=== PATIENT | male | born 1930 | race Caucasian/White ===

== ENCOUNTER 2017-04-22 13:27 | Inpatient (IN) | payer OTHER ==
[~2017-04-22] VITALS: Ht 177.8 cm; Wt 81.5 kg
[~2017-04-22 13:27] MED LIST: ACET500 PO; AZIT250 PO; Antivert25 MG PO; CEPH500 PO; CHOL10002 PO; CYAN100 PO; DOC250 PO; FINA5 PO; HYDACE5325 PO; HYDCHL25 PO; LEVSOD25 PO; LEVSOD50 PO; LISI20 PO; MULVITMINF PO; NAPR220 PO; NIFE30ER PO; OMEP20ER PO; OMEPRAZOLE MAGN20 MG PO; PROCODE120 PO; SIMV10 PO; SOTO80 PO; TAMS.4ER PO; TERA2 PO; WARF5 PO; [UNRECOGNIZED DRUG - REMARK] PO
[2017-04-22] MEDS ORDERED: HYDR1TAB94 PO (15:33)
[2017-04-23 05:58] LABS: BASOPHILS ABSOLUTE AUTO 0.02 K/mm3 (0.00-0.23); BASOPHILS PERCENT AUTO 0 % (0-2); EOSINOPHILS ABSOLUTE AUTO 0.01 K/mm3 (0.00-0.68); EOSINOPHILS PERCENT AUTO 0 % (0-6); Hematocrit 23.4 % (37.0-53.0); Hemoglobin 7.7 g/dL (13.5-17.5); IMMATURE GRAN ABSOLUTE AUTO 0.04 K/mm3 (0.00-0.10); IMMATURE GRAN PERCENT AUTO 1 % (0-1); LYMPHOCYTES ABSOLUTE AUTO 1.65 K/mm3 (0.84-5.20); LYMPHOCYTES PERCENT AUTO 22 % (21-46); MONOCYTES ABSOLUTE AUTO 0.66 K/mm3 (0.16-1.47); MONOCYTES PERCENT AUTO 9 % (4-13); Mean Corpuscular HGB 29.5 pg (26.0-34.0); Mean Corpuscular HGB Conc 32.9 g/dL (31.5-36.5); Mean Corpuscular Volume 90 fL (80-100); Mean Platelet Volume 10.9 fL (9.1-12.4); NEUTROPHILS ABSOLUTE AUTO 5.14 K/mm3 (1.96-9.15); NEUTROPHILS PERCENT AUTO 68 % (41-73); NRBC ABSOLUTE 0.04 K/mm3 (0.00-0.02); NRBC Auto 0.5 /100 WBC (0.0-0.2); Platelet Count 164 K/mm3 (150-400); RDW Coefficient Variation 15.4 % (11.7-14.2); RDW Standard Deviation 49.9 fL (35.1-46.3); Red Blood Cell Count 2.61 M/mm3 (4.30-5.90); White Blood Cell Count 7.52 K/mm3 (4.00-11.30)
[2017-04-23 06:19] LABS: Anion Gap 10 mmol/L (6-16); Blood Urea Nitrogen 21 mg/dL (8-24); Bun/Creatinine Ratio 31.1 (12.0-20.0); CO2, Blood 22 mmol/L (21-32); Calcium, Blood 7.5 mg/dL (8.5-10.1); Chloride, Blood 102 mmol/L (98-108); Creatinine, Blood 0.68 mg/dL (0.60-1.20); Glomerular Filtration Rate >60 (60-); Glucose, Blood 104 mg/dL (70-99); Potassium, Blood 3.7 mmol/L (3.5-5.5); Sodium, Blood 134 mmol/L (136-145)
[2017-04-23 09:45] LABS: International Normalized Ratio 2.69; Prothrombin Time Results 28.8 Sec (9.7-11.5)
[2017-04-23 21:46] LABS: Hematocrit 29.1 % (37.0-53.0); Hemoglobin 9.4 g/dL (13.5-17.5)
[2017-04-23 21:58] LABS: International Normalized Ratio 1.88; Prothrombin Time Results 19.9 Sec (9.7-11.5)
[2017-04-24 06:02] LABS: BASOPHILS ABSOLUTE AUTO 0.02 K/mm3 (0.00-0.23); BASOPHILS PERCENT AUTO 0 % (0-2); EOSINOPHILS ABSOLUTE AUTO 0.08 K/mm3 (0.00-0.68); EOSINOPHILS PERCENT AUTO 1 % (0-6); Hematocrit 28.9 % (37.0-53.0); Hematocrit 29.2 % (37.0-53.0); Hemoglobin 9.6 g/dL (13.5-17.5); Hemoglobin 9.7 g/dL (13.5-17.5); IMMATURE GRAN ABSOLUTE AUTO 0.09 K/mm3 (0.00-0.10); IMMATURE GRAN PERCENT AUTO 1 % (0-1); LYMPHOCYTES ABSOLUTE AUTO 0.85 K/mm3 (0.84-5.20); LYMPHOCYTES PERCENT AUTO 10 % (21-46); MONOCYTES ABSOLUTE AUTO 0.78 K/mm3 (0.16-1.47); MONOCYTES PERCENT AUTO 9 % (4-13); Mean Corpuscular HGB 29.6 pg (26.0-34.0); Mean Corpuscular HGB Conc 33.2 g/dL (31.5-36.5); Mean Corpuscular Volume 89 fL (80-100); NEUTROPHILS ABSOLUTE AUTO 6.81 K/mm3 (1.96-9.15); NEUTROPHILS PERCENT AUTO 79 % (41-73); NRBC ABSOLUTE 0.05 K/mm3 (0.00-0.02); NRBC Auto 0.6 /100 WBC (0.0-0.2); Platelet Count 165 K/mm3 (150-400); RDW Standard Deviation 51.4 fL (35.1-46.3); Red Blood Cell Count 3.28 M/mm3 (4.30-5.90); White Blood Cell Count 8.63 K/mm3 (4.00-11.30)
[2017-04-24 06:19] LABS: International Normalized Ratio 1.59
[2017-04-24 06:25] LABS: Prothrombin Time Results 16.8 Sec (9.7-11.5)
[2017-04-24 06:30] LABS: Anion Gap 9 mmol/L (6-16); Blood Urea Nitrogen 13 mg/dL (8-24); Bun/Creatinine Ratio 18.3 (12.0-20.0); CO2, Blood 24 mmol/L (21-32); Chloride, Blood 101 mmol/L (98-108); Creatinine, Blood 0.71 mg/dL (0.60-1.20); Glomerular Filtration Rate >60 (60-); Glucose, Blood 102 mg/dL (70-99); Potassium, Blood 3.5 mmol/L (3.5-5.5); Sodium, Blood 134 mmol/L (136-145)
[2017-04-24 13:40] LABS: Hematocrit 28.3 % (37.0-53.0); Hemoglobin 9.4 g/dL (13.5-17.5)
[2017-04-24 21:58] LABS: Hematocrit 25.9 % (37.0-53.0); Hemoglobin 8.7 g/dL (13.5-17.5)
[2017-04-25 08:21] LABS: Hematocrit 30.6 % (37.0-53.0); Hemoglobin 9.7 g/dL (13.5-17.5)
== END 2017-04-25 12:25 | disposition home or self-care (01) | DRG 392 ==
LOC: ER 13:27 → MEDS 13:28
PROVIDERS: Family Medicine; Internal Medicine Gastroenterology
PROC: 0DJ08ZZ Inspection of Upper Intestinal Tract, Via Natural or Artificial Opening Endoscopic (ICD-10-PCS; principal; 2017-04-23 12:00)
DX: K21.0 Gastro-esophageal reflux disease with esophagitis (principal); D62 Acute posthemorrhagic anemia; D68.4 Acquired coagulation factor deficiency; I48.2 Chronic atrial fibrillation; K31.7 Polyp of stomach and duodenum; I10 Essential (primary) hypertension; E03.9 Hypothyroidism, unspecified; F43.10 Post-traumatic stress disorder, unspecified; F51.04 Psychophysiologic insomnia; N40.1 Benign prostatic hyperplasia with lower urinary tract symptoms; R33.8 Other retention of urine; K57.30 Diverticulosis of large intestine without perforation or abscess without bleeding; K22.8 Other specified diseases of esophagus; K29.00 Acute gastritis without bleeding; G89.29 Other chronic pain; Z87.891 Personal history of nicotine dependence; Z79.899 Other long term (current) drug therapy; Z79.01 Long term (current) use of anticoagulants; Z88.2 Allergy status to sulfonamides
CPT/HCPCS: 36415; 36430; 80048; 85014; 85018; 85025; 85610; 86850; 86900; 86901; 86920; 86927; 96374; 99285; C9113; J1170; J7030; J7042; J7120; P9016; P9059

== ENCOUNTER 2018-06-09 07:39 | Inpatient (IN) | payer OTHER ==
[~2018-06-09] VITALS: Ht 172.7 cm; Wt 78.9 kg
[~2018-06-09 07:39] MED LIST changes: +HYDR1TAB94 PO; +LEVSOD75 PO
[2018-06-09 08:13] LABS: BASOPHILS ABSOLUTE AUTO 0.03 K/mm3 (0.00-0.23); BASOPHILS PERCENT AUTO 0 % (0-2); EOSINOPHILS ABSOLUTE AUTO 0.06 K/mm3 (0.00-0.68); EOSINOPHILS PERCENT AUTO 1 % (0-6); Hemoglobin 9.3 g/dL (13.5-17.5); IMMATURE GRAN ABSOLUTE AUTO 0.05 K/mm3 (0.00-0.10); IMMATURE GRAN PERCENT AUTO 1 % (0-1); LYMPHOCYTES ABSOLUTE AUTO 0.83 K/mm3 (0.84-5.20); LYMPHOCYTES PERCENT AUTO 12 % (21-46); MONOCYTES ABSOLUTE AUTO 0.36 K/mm3 (0.16-1.47); MONOCYTES PERCENT AUTO 5 % (4-13); Mean Corpuscular HGB 29.2 pg (26.0-34.0); Mean Corpuscular HGB Conc 32.1 g/dL (31.5-36.5); Mean Corpuscular Volume 91 fL (80-100); Mean Platelet Volume 11.1 fL (9.1-12.4); NEUTROPHILS ABSOLUTE AUTO 5.53 K/mm3 (1.96-9.15); NEUTROPHILS PERCENT AUTO 81 % (41-73); Platelet Count 155 K/mm3 (150-400); RDW Coefficient Variation 16.9 % (11.7-14.2); RDW Standard Deviation 56.7 fL (35.1-46.3); Red Blood Cell Count 3.19 M/mm3 (4.30-5.90); White Blood Cell Count 6.86 K/mm3 (4.00-11.30)
[2018-06-09 08:32] LABS: International Normalized Ratio 3.06; Prothrombin Time Results 29.3 Sec (9.7-11.5)
[2018-06-09 08:34] LABS: Alanine Aminotransfer (ALT/SGP 21 U/L (12-78); Albumin, Blood 3.1 g/dL (3.4-5.0); Albumin/Globulin Ratio 0.8 (0.8-1.8); Alk Phos 63 U/L (50-136); Anion Gap 9 mmol/L (6-16); Aspartate Aminotrans (AST/SGOT 15 U/L (12-37); Bilirubin, Total 0.3 mg/dL (0.1-1.0); Blood Urea Nitrogen 45 mg/dL (8-24); Bun/Creatinine Ratio 40.2 (12.0-20.0); CO2, Blood 24 mmol/L (21-32); Calcium, Blood 8.7 mg/dL (8.5-10.1); Chloride, Blood 105 mmol/L (98-108); Creatinine, Blood 1.12 mg/dL (0.60-1.20); Globulin, Blood 3.8 g/dL (2.2-4.0); Glomerular Filtration Rate >60 (60-); Glucose, Blood 92 mg/dL (70-99); Potassium, Blood 4.1 mmol/L (3.5-5.5); Sodium, Blood 138 mmol/L (136-145); Total Protein, Blood 6.9 g/dL (6.4-8.2)
[2018-06-09] MEDS ORDERED: SKIN TREATMENT225 GM (09:29)
[2018-06-09] MEDS ORDERED: DOXA2 PO (09:30)
[2018-06-09] MEDS ORDERED: DOCU100 PO (09:30)
[2018-06-09] MEDS ORDERED: FURO20 PO (09:31)
[2018-06-09] MEDS ORDERED: Loratadine10 MG PO (09:31)
[2018-06-09] MEDS ORDERED: HYDR1TAB94 (09:31)
[2018-06-09] MEDS ORDERED: Multivitamins1 EACH PO (09:32)
--- NOTE | 2018-06-09 14:05 | NUR ---
REPORT FROM BELINDA TREVINO. REPORT GIVEN TO BELINDA OCONNOR ASSUMING CARE.
--- NOTE | 2018-06-09 18:33 | NUR ---
PT TRANSFERED TO [facility]- CALLED REPORT TO NIKKO AT [facility]. NO FURTHER QUESTIONS WHEN REPORT WAS COMPLETE. CONTACT INFO PROVIDED. PT TAKEN BY [facility] TRANSPORT. VITALS TAKEN AT THE TIME OF TRANSFER.
== END 2018-06-09 18:15 | disposition short-term general hospital (02) | DRG 378 ==
LOC: ER 07:39 → MEDS 13:06
PROVIDERS: Emergency Medicine; ADMIT Hospitalist
PROC: 30233M1 Transfusion of Nonautologous Plasma Cryoprecipitate into Peripheral Vein, Percutaneous Approach (ICD-10-PCS; principal; 2018-06-09)
DX: K92.1 Melena (principal); D68.32 Hemorrhagic disorder due to extrinsic circulating anticoagulants; T45.515A Adverse effect of anticoagulants, initial encounter; I10 Essential (primary) hypertension; E03.9 Hypothyroidism, unspecified; I48.91 Unspecified atrial fibrillation; Z87.891 Personal history of nicotine dependence; Z95.2 Presence of prosthetic heart valve; N31.9 Neuromuscular dysfunction of bladder, unspecified
CPT/HCPCS: 71045; 80053; 85025; 85610; 86850; 86900; 86901; 93005; 93010; C9113; J3430; P9059

== ENCOUNTER 2018-06-14 05:10 | Observation (INO) | payer OTHER ==
[~2018-06-14] VITALS: Ht 177.8 cm; Wt 84.1 kg
[~2018-06-14 05:10] MED LIST changes: +DOCU100 PO; +DOXA2 PO; +FURO20 PO; +HYDR1TAB94; +Multivitamins1 EACH PO; -NIFE30ER PO; +NIFE60ER PO; +SKIN TREATMENT225 GM TOP
[2018-06-14 06:04] LABS: BASOPHILS ABSOLUTE AUTO 0.01 K/mm3 (0.00-0.23); BASOPHILS PERCENT AUTO 0 % (0-2); EOSINOPHILS ABSOLUTE AUTO 0.22 K/mm3 (0.00-0.68); EOSINOPHILS PERCENT AUTO 4 % (0-6); Hematocrit 25.6 % (37.0-53.0); Hemoglobin 8.3 g/dL (13.5-17.5); IMMATURE GRAN ABSOLUTE AUTO 0.02 K/mm3 (0.00-0.10); IMMATURE GRAN PERCENT AUTO 0 % (0-1); LYMPHOCYTES ABSOLUTE AUTO 1.07 K/mm3 (0.84-5.20); LYMPHOCYTES PERCENT AUTO 18 % (21-46); MONOCYTES ABSOLUTE AUTO 0.48 K/mm3 (0.16-1.47); MONOCYTES PERCENT AUTO 8 % (4-13); Mean Corpuscular HGB 30.5 pg (26.0-34.0); Mean Corpuscular HGB Conc 32.4 g/dL (31.5-36.5); NEUTROPHILS ABSOLUTE AUTO 4.05 K/mm3 (1.96-9.15); NEUTROPHILS PERCENT AUTO 69 % (41-73); RDW Standard Deviation 59.6 fL (35.1-46.3); Red Blood Cell Count 2.72 M/mm3 (4.30-5.90); White Blood Cell Count 5.85 K/mm3 (4.00-11.30)
[2018-06-14 06:06] LABS: Mean Corpuscular Volume 94 fL (80-100); Mean Platelet Volume 12.7 fL (9.1-12.4); Platelet Count 107 K/mm3 (150-400)
[2018-06-14 06:14] LABS: Albumin, Blood 2.9 g/dL (3.4-5.0); Albumin/Globulin Ratio 0.8 (0.8-1.8); Bilirubin, Total 0.5 mg/dL (0.1-1.0); Bun/Creatinine Ratio 13.1 (12.0-20.0); Creatinine, Blood 1.3 mg/dL (0.60-1.20); Globulin, Blood 3.6 g/dL (2.2-4.0); Potassium, Blood 3.8 mmol/L (3.5-5.5); Total Protein, Blood 6.5 g/dL (6.4-8.2)
[2018-06-14] MEDS ORDERED: TAMS.4ER PO (06:58)
[2018-06-14 06:59] LABS: Source, Urine Catheter
[2018-06-14 07:07] LABS: Bilirubin, Urine Neg (Neg); Blood, Urine Neg (Neg); Glucose Qualitative, Urine Neg (Neg); Ketones, Urine Neg (Neg); Leukocyte Esterase, Urine Neg (Neg); Nitrite, Urine Neg (Neg); Protein, Urine 1+ (Neg); Urobilinogen, Urine NORM (Normal)
[2018-06-14 07:13] LABS: Appearance, Urine Clear (Clear); Color, Urine Yellow (P-Yellow)
[2018-06-14 07:48] LABS: International Normalized Ratio 1.22; Prothrombin Time Results 12.7 Sec (9.7-11.5)
[2018-06-14] MEDS ORDERED: Loratadine10 MG PO (13:32)
[2018-06-14] MEDS ORDERED: ASCO500 PO (13:37)
[2018-06-14] MEDS ORDERED: AZO CRANBERRY250 MG PO (13:38)
[2018-06-14] MEDS ORDERED: Super B-50 Com1 EACH PO (13:39)
[2018-06-14] MEDS ORDERED: MAGNESIUM250 MG PO (13:39)
[2018-06-14] MEDS ORDERED: Cardura2 MG PO (13:49)
[2018-06-14] MEDS ORDERED: [UNRECOGNIZED DRUG - OTHER] BOTHEYES (13:51)
--- NOTE | 2018-06-14 16:46 | NUR ---
SHIFT SUMMARY RECEIVED HANDOFF REPORT FROM ED NURSE NEHEMIAS. 88 YR OLD MALE DIAGNOSED WITH BLOOD LOSS ANEMIA. HE STATES HE HAS ABD PAIN, CONSTIPATION, AND URINARY RETENTION. HE WAS FOUND TO BE HYPOXIC IN ER. HE IS ON 2 LPM VIA NC. PT HAD A COLONOSCOPY AND EGD AT [place] 3 DAYS PREVIOUS AND HAS HAD NO BM SINCE. HE IS A&O X4. HE HAS A HX OF SELF-CATHETERIZING DUE TO NEUROGENIC BLADDER. ED PUT IN A GONZALEZ AND 200 ML OF URINE WAS REMOVED. PT CAME TO THE FLOOR WITH THE 2ND OF TWO ORDERED UNITS OF BLOOD INFUSING. PT RESIDES AT [facility]. HX: HTN, A-FIB, HYPOTHYROID.
[2018-06-15 05:16] LABS: BASOPHILS ABSOLUTE AUTO 0.04 K/mm3 (0.00-0.23); BASOPHILS PERCENT AUTO 1 % (0-2); EOSINOPHILS ABSOLUTE AUTO 0.11 K/mm3 (0.00-0.68); EOSINOPHILS PERCENT AUTO 2 % (0-6); Hematocrit 32.7 % (37.0-53.0); Hemoglobin 10.4 g/dL (13.5-17.5); IMMATURE GRAN ABSOLUTE AUTO 0.03 K/mm3 (0.00-0.10); IMMATURE GRAN PERCENT AUTO 1 % (0-1); LYMPHOCYTES ABSOLUTE AUTO 0.91 K/mm3 (0.84-5.20); LYMPHOCYTES PERCENT AUTO 16 % (21-46); MONOCYTES ABSOLUTE AUTO 0.48 K/mm3 (0.16-1.47); MONOCYTES PERCENT AUTO 8 % (4-13); Mean Corpuscular HGB 29.6 pg (26.0-34.0); Mean Corpuscular HGB Conc 31.8 g/dL (31.5-36.5); Mean Corpuscular Volume 93 fL (80-100); Mean Platelet Volume 11.7 fL (9.1-12.4); NEUTROPHILS ABSOLUTE AUTO 4.26 K/mm3 (1.96-9.15); NEUTROPHILS PERCENT AUTO 73 % (41-73); Platelet Count 151 K/mm3 (150-400); RDW Coefficient Variation 17.2 % (11.7-14.2); RDW Standard Deviation 56.6 fL (35.1-46.3); Red Blood Cell Count 3.51 M/mm3 (4.30-5.90); White Blood Cell Count 5.83 K/mm3 (4.00-11.30)
[2018-06-15] MEDS ORDERED: CIPR500 PO (06:15)
--- NOTE | 2018-06-15 06:18 | NUR ---
alert and oriented and had been admitted at [facility] in [place] and with diverticulitis and has needed 3 units of packed red blood cells. He had gen weakness and poor appetite and symptomatic anemia. he is [employer] and served 22 years. He recives services from [facility]. He recieved 2 units of PRBC transfusion here and H & H improved. PT has neurogenic bladder and he self caths average of 6 times in 24 hours. A remy was placed in ER yesterday and DR Azael bailon order to keep remy due to his ongoing condition. Discussed PT was DC home on Cipro 500 mg po BID x 4 days and He took 2 doses Monday but none since. RX not ordered but entered into med rec. PT had relief of constipation has evening at shift change with exlarge formed . Remy cath drained 975 clear urine and PT expressed good relief of urinary retention. Spirits good has PT eval order. took joselyn pudding and ensure with set up.
[2018-06-15 11:03] LABS: Hematocrit 33.9 % (37.0-53.0); Hemoglobin 10.8 g/dL (13.5-17.5)
--- NOTE | 2018-06-15 16:09 | NUR ---
CALLED DR CASANOVA- *LATE ENTRY* PT HGB REMAINING STABLE. PT UP WALKING IN THE ROOM, HOME O2 EVAL COMPLETED AND ASSESSMENT BY PHYSICAL THERAPY COMPLETED, RECOMEND HOME HEALTH FOLLOW-UP. DR MAO OK TO SEND PT HOME AT THIS TIME. SPOKE TO [place] 9 POLICE OFFICER WHO ARRANGED TRANSPORT HOME FOR THE PT, AT HIS REQUEST. PT IS AWARE OF THE COST OF THE TRANSPORT.
--- NOTE | 2018-06-15 17:40 | NUR ---
DISCHARGE NOTE- PT WAS GIVEN VERBAL AND WRITTEN DISCHARGE INSTRUCTIONS AND ACKNOWLEDGED UNDERSTANDING OF THEM. IV DC'D PRIOR TO DISCHARGE. PT WAS TAKEN BY W/C TRANSPORT BACK TO HIS ASSISTED LIVING HOME. DAUGHTER PRESENT AT THE TIME PT LEFT.
== END 2018-06-15 17:20 | disposition home or self-care (01) ==
LOC: ER 05:10 → MEDS 05:11
PROVIDERS: Emergency Medicine; ADMIT Hospitalist
DX: D50.0 Iron deficiency anemia secondary to blood loss (chronic) (principal); K59.00 Constipation, unspecified; I10 Essential (primary) hypertension; N31.9 Neuromuscular dysfunction of bladder, unspecified; E03.9 Hypothyroidism, unspecified; I48.91 Unspecified atrial fibrillation; Z87.891 Personal history of nicotine dependence; Z91.048 Other nonmedicinal substance allergy status; Z88.2 Allergy status to sulfonamides; Z79.899 Other long term (current) drug therapy
CPT/HCPCS: 36415; 36430; 51702; 74022; 80053; 82272; 83690; 83880; 85014; 85018; 85025; 85610; 86850; 86900; 86901; 86923; 93005; 93010; 94761; 96374; 97116; 97161; 99285-25; G0378; J1940; J7030; P9016

== ENCOUNTER 2018-10-18 01:06 | Emergency (ER) | payer OTHER ==
[~2018-10-18] VITALS: Ht 177.8 cm; Wt 80.3 kg
[~2018-10-18 01:06] MED LIST changes: +ASCO500 PO; +AZO CRANBERRY250 MG PO; +CIPR500 PO; +Cardura2 MG PO; +Loratadine10 MG PO; +MAGNESIUM250 MG PO; +Super B-50 Com1 EACH PO; +[UNRECOGNIZED DRUG - OTHER] BOTHEYES
[2018-10-18 01:38] LABS: Source, Urine Catheter
[2018-10-18 01:42] LABS: Appearance, Urine Clear (Clear); Bilirubin, Urine Neg (Neg); Blood, Urine Neg (Neg); Color, Urine Yellow (P-Yellow); Glucose Qualitative, Urine Neg (Neg); Ketones, Urine Neg (Neg); Leukocyte Esterase, Urine 2+ (Neg); Nitrite, Urine Neg (Neg); Protein, Urine Neg (Neg); Specific Gravity, Urine 1.005 (1.003-1.022); Urobilinogen, Urine NORM (Normal)
[2018-10-18 01:50] LABS: Bacteria Mod /hpf; Red Blood Cells, Urine 0-2 /hpf (0-2); Squamous Epithelial Cells Not Seen /hpf (Few)
[2018-10-18] MEDS ORDERED: CEFP200 PO (02:07)
== END 2018-10-18 02:50 | disposition home or self-care (01) ==
LOC: ER 01:06
PROVIDERS: Emergency Medicine
DX: N39.0 Urinary tract infection, site not specified (principal); I10 Essential (primary) hypertension; I48.91 Unspecified atrial fibrillation; E03.9 Hypothyroidism, unspecified; Z79.899 Other long term (current) drug therapy; Z88.2 Allergy status to sulfonamides; Z87.891 Personal history of nicotine dependence
CPT/HCPCS: 51701; 81001; 87077; 87086; 87186; 99284; A9270-GY

== ENCOUNTER 2018-12-04 17:16 | Emergency (ER) | payer OTHER ==
[~2018-12-04] VITALS: Ht 172.7 cm; Wt 79.4 kg
[~2018-12-04 17:16] MED LIST changes: +CEFP200 PO
[2018-12-04 18:48] LABS: BASOPHILS ABSOLUTE AUTO 0.02 K/mm3 (0.00-0.23); BASOPHILS PERCENT AUTO 0 % (0-2); EOSINOPHILS ABSOLUTE AUTO 0.05 K/mm3 (0.00-0.68); EOSINOPHILS PERCENT AUTO 1 % (0-6); Hemoglobin 10.7 g/dL (13.5-17.5); IMMATURE GRAN ABSOLUTE AUTO 0.05 K/mm3 (0.00-0.10); IMMATURE GRAN PERCENT AUTO 1 % (0-1); LYMPHOCYTES ABSOLUTE AUTO 0.61 K/mm3 (0.84-5.20); LYMPHOCYTES PERCENT AUTO 10 % (21-46); MONOCYTES ABSOLUTE AUTO 0.37 K/mm3 (0.16-1.47); MONOCYTES PERCENT AUTO 6 % (4-13); Mean Corpuscular HGB 31.8 pg (26.0-34.0); Mean Corpuscular HGB Conc 33.4 g/dL (31.5-36.5); Mean Corpuscular Volume 95 fL (80-100); NEUTROPHILS ABSOLUTE AUTO 4.88 K/mm3 (1.96-9.15); NEUTROPHILS PERCENT AUTO 82 % (41-73); RDW Coefficient Variation 15.1 % (11.7-14.2); RDW Standard Deviation 52.7 fL (35.1-46.3); Red Blood Cell Count 3.36 M/mm3 (4.30-5.90); White Blood Cell Count 5.98 K/mm3 (4.00-11.30)
[2018-12-04 19:09] LABS: Albumin, Blood 3.3 g/dL (3.4-5.0); Albumin/Globulin Ratio 0.8 (0.8-1.8); Bilirubin, Total 0.7 mg/dL (0.1-1.0); Calcium, Blood 8.5 mg/dL (8.5-10.1); Creatinine, Blood 1.73 mg/dL (0.60-1.20); Globulin, Blood 4.1 g/dL (2.2-4.0); Total Protein, Blood 7.4 g/dL (6.4-8.2)
[2018-12-04 20:06] LABS: Mean Platelet Volume 11.9 fL (9.1-12.4); Platelet Count 98 K/mm3 (150-400)
[2018-12-04 20:21] LABS: Source, Urine Catheter
[2018-12-04 20:29] LABS: Bilirubin, Urine Neg (Neg); Blood, Urine 2+ (Neg); Glucose Qualitative, Urine Neg (Neg); Ketones, Urine Neg (Neg); Leukocyte Esterase, Urine 3+ (Neg); Nitrite, Urine Neg (Neg); Protein, Urine 1+ (Neg); Specific Gravity, Urine 1.005 (1.003-1.022); Urobilinogen, Urine NORM (Normal)
[2018-12-04 20:41] LABS: Appearance, Urine Hazy (Clear); Bacteria Many /hpf; Color, Urine Yellow (P-Yellow); Red Blood Cells, Urine Not Seen /hpf (0-2); Squamous Epithelial Cells Not Seen /hpf (Few); White Blood Cells, Urine 50-100 /hpf (0-5)
[2018-12-04] MEDS ORDERED: Levaquin750 MG PO (22:43)
[2018-12-04] MEDS ORDERED: CEPH500 PO (22:43)
== END 2018-12-05 00:05 | disposition home or self-care (01) ==
LOC: ER 17:16
PROVIDERS: Physician Assistant
DX: N39.0 Urinary tract infection, site not specified (principal); I10 Essential (primary) hypertension; I48.91 Unspecified atrial fibrillation; E03.9 Hypothyroidism, unspecified; Z87.891 Personal history of nicotine dependence; Z88.2 Allergy status to sulfonamides; Z91.048 Other nonmedicinal substance allergy status; Z79.899 Other long term (current) drug therapy
CPT/HCPCS: 80053; 81001; 83690; 85025; 87077; 87086; 87186; 96365; 99283-25; J0696; J7030

== ENCOUNTER 2019-08-23 06:58 | Observation (INO) | payer OTHER ==
[~2019-08-23] VITALS: Ht 172.7 cm; Wt 82.4 kg
[~2019-08-23 06:58] MED LIST changes: +Levaquin750 MG PO; +Macrobid 100 M100 MG PO
[2019-08-23] MEDS ORDERED: LISI20 PO (07:38)
[2019-08-23] MEDS ORDERED: FURO20 PO (07:39)
[2019-08-23] MEDS ORDERED: EUTHYROX50 MCG PO (07:39)
[2019-08-23] MEDS ORDERED: Afeditab Cr30 MG PO (07:39)
[2019-08-23] MEDS ORDERED: OMEP20ER PO (07:40)
[2019-08-23] MEDS ORDERED: CENTRUM SILVER1 EAC2 PO (07:40)
[2019-08-23] MEDS ORDERED: AZO BLADDER CO300 MG PO (07:40)
[2019-08-23] MEDS ORDERED: DOXA2 PO (07:41)
[2019-08-23] MEDS ORDERED: FINA5 PO (07:41)
[2019-08-23 08:06] LABS: Source, Urine Catheter
[2019-08-23 08:08] LABS: BASOPHILS ABSOLUTE AUTO 0.01 K/mm3 (0.00-0.23); BASOPHILS PERCENT AUTO 0 % (0-2); EOSINOPHILS ABSOLUTE AUTO 0.08 K/mm3 (0.00-0.68); EOSINOPHILS PERCENT AUTO 3 % (0-6); Hemoglobin 10.3 g/dL (13.5-17.5); IMMATURE GRAN ABSOLUTE AUTO 0.02 K/mm3 (0.00-0.10); IMMATURE GRAN PERCENT AUTO 1 % (0-1); LYMPHOCYTES ABSOLUTE AUTO 0.52 K/mm3 (0.84-5.20); LYMPHOCYTES PERCENT AUTO 22 % (21-46); MONOCYTES ABSOLUTE AUTO 0.07 K/mm3 (0.16-1.47); MONOCYTES PERCENT AUTO 3 % (4-13); Mean Corpuscular HGB Conc 33.2 g/dL (31.5-36.5); Mean Corpuscular Volume 99 fL (80-100); Mean Platelet Volume 12.6 fL (9.1-12.4); NEUTROPHILS ABSOLUTE AUTO 1.64 K/mm3 (1.96-9.15); NEUTROPHILS PERCENT AUTO 70 % (41-73); Platelet Count 102 K/mm3 (150-400); RDW Coefficient Variation 16.6 % (11.7-14.2); RDW Standard Deviation 60.3 fL (35.1-46.3); Red Blood Cell Count 3.12 M/mm3 (4.30-5.90); White Blood Cell Count 2.34 K/mm3 (4.00-11.30)
[2019-08-23 08:12] LABS: Bilirubin, Urine Neg (Neg); Blood, Urine 1+ (Neg); Glucose Qualitative, Urine Neg (Neg); Ketones, Urine Neg (Neg); Leukocyte Esterase, Urine 3+ (Neg); Nitrite, Urine Neg (Neg); Protein, Urine Neg (Neg); Specific Gravity, Urine 1.015 (1.003-1.022); Urobilinogen, Urine NORM (Normal)
[2019-08-23 08:39] LABS: Color, Urine Yellow (P-Yellow)
[2019-08-23 08:40] LABS: Appearance, Urine Hazy (Clear); Bacteria Many /hpf; Red Blood Cells, Urine 0-2 /hpf (0-2); Squamous Epithelial Cells Rare /hpf (Few)
[2019-08-23 08:40] LABS: Albumin, Blood 3.5 g/dL (3.4-5.0); Albumin/Globulin Ratio 0.9 (0.8-1.8); Bilirubin, Total 0.6 mg/dL (0.1-1.0); Calcium, Blood 8.7 mg/dL (8.5-10.1); Creatinine, Blood 1.75 mg/dL (0.60-1.20); Potassium, Blood 4.3 mmol/L (3.5-5.5); Total Protein, Blood 7.5 g/dL (6.4-8.2)
--- NOTE | 2019-08-23 18:06 | NUR ---
PT IS AOX4 AND COOPERATIVE OF CARE. PT HAS BEEN SETTLED INTO HIS ROOM AND ORIENTED TO CALL LIGHT. PT DID REPORT MUSCLE CRAMPS UNDER HIS RIB CAGE AND IN HIS HAS TO THE POINT HE HAD TO STAND AND COULD NOT TOLERATE LAYING IN BED. ONCE PT WAS UP IN CHAIR CRAMPING RESOLVED. NOTIFIED DR HERNANDSE OF PROBLEM AND MEDICATION WAS ADDED TO EMAR. CAN ABULATE WITH MINIMAL ASSISTANCE, IS JUST A BIT UNSTABLE WHEN STANDING. PT UP IN CHAIR EATING WILL CONTINUE TO MONITOR.
--- NOTE | 2019-08-24 03:23 | NUR ---
SHIFT SUMMARY PT HAS BEEN RESTING QUIETLY WITH FEW INTERRUPTIONS SINCE HS. GONZALEZ DRAINING. O2 PER NC AT 2L/MIN. NO NOTED DYSPNEIC EPISODES OF THIS WRITING. AGREED TO USE CALL LIGHT IF NEEDING TO GET OUT OF BED, CALL LIGHT IN REACH. MED TELE CONTINUES - A FIB AT 53. WILL CONTINUE TO MONITOR
[2019-08-24 05:05] LABS: BASOPHILS ABSOLUTE AUTO 0.02 K/mm3 (0.00-0.23); BASOPHILS PERCENT AUTO 1 % (0-2); EOSINOPHILS ABSOLUTE AUTO 0.12 K/mm3 (0.00-0.68); EOSINOPHILS PERCENT AUTO 5 % (0-6); Hematocrit 28.4 % (37.0-53.0); Hemoglobin 9.4 g/dL (13.5-17.5); Mean Corpuscular HGB 33.1 pg (26.0-34.0); Mean Corpuscular HGB Conc 33.1 g/dL (31.5-36.5); Mean Corpuscular Volume 100 fL (80-100); Mean Platelet Volume 12.2 fL (9.1-12.4); Platelet Count 82 K/mm3 (150-400); RDW Coefficient Variation 16.7 % (11.7-14.2); RDW Standard Deviation 61.1 fL (35.1-46.3); Red Blood Cell Count 2.84 M/mm3 (4.30-5.90); White Blood Cell Count 2.28 K/mm3 (4.00-11.30)
[2019-08-24 05:19] LABS: IMMATURE GRAN ABSOLUTE AUTO 0.01 K/mm3 (0.00-0.10); IMMATURE GRAN PERCENT AUTO 0 % (0-1); LYMPHOCYTES ABSOLUTE AUTO 0.75 K/mm3 (0.84-5.20); LYMPHOCYTES PERCENT AUTO 33 % (21-46); MONOCYTES ABSOLUTE AUTO 0.09 K/mm3 (0.16-1.47); MONOCYTES PERCENT AUTO 4 % (4-13); NEUTROPHILS ABSOLUTE AUTO 1.29 K/mm3 (1.96-9.15); NEUTROPHILS PERCENT AUTO 57 % (41-73)
[2019-08-24 05:21] LABS: Calcium, Blood 8.3 mg/dL (8.5-10.1); Creatinine, Blood 1.62 mg/dL (0.60-1.20); Potassium, Blood 3.9 mmol/L (3.5-5.5)
[2019-08-24] MEDS ORDERED: LACT PO (11:25)
[2019-08-24] MEDS ORDERED: CEPH500 PO (11:25)
[2019-08-24] MEDS ORDERED: FURO40 PO (11:26)
[2019-08-24] MEDS ORDERED: ACET325 PO (11:33)
--- NOTE | 2019-08-24 12:52 | NUR ---
DISCHARGE PT STATE FEELING IMPROVED THIS AM, NO SOB OR BREATHING ISSUES @ THIS TIME, VSS, BIOX 94% RA. DR HERNANDES IN TO SEE HIM, STATE HE MAY GO HOME TODAY. NOTIFIED PT'S DAUGHTER. CLOUD INFRASTRUCTURE ARCHITECT NOTIFY [facility] THAT PT WILL RETURN HOME TODAY. SCRIPTS FAXED TO [facility]. GRADUATING MACHINE OPERATOR ARRANGE HOME HEALTH & F/U [facility]PT w [facility], GONZALEZ CATH D/C'D, PT WILL CONTINUE SELF CATHS @ HOME. IV D/C INTACT. D/C INSTRUCT REVIEWED w PT, EMPHASIS ON DIET, WEIGHT MONITORING & MEDICATIONS. PT ASSISTED TO DRESS/GATHER BELONGINGS. W/C ESCRT FROM HOSP PROVIDED, DONNA W/C VALORIE. HE IS PLEASANT/APPRECIATIVE.
== END 2019-08-24 12:40 | disposition home health service (06) ==
LOC: ER 06:58 → MEDS 06:59 → ER 10:33 → MEDS 10:33
PROVIDERS: Emergency Medicine; ADMIT Internal Medicine
DX: J96.01 Acute respiratory failure with hypoxia (principal); I13.0 Hypertensive heart and chronic kidney disease with heart failure and stage 1 through stage 4 chronic kidney disease, or unspecified chronic kidney disease; I50.30 Unspecified diastolic (congestive) heart failure; N18.3 Chronic kidney disease, stage 3 (moderate); I48.91 Unspecified atrial fibrillation; N31.9 Neuromuscular dysfunction of bladder, unspecified; N39.0 Urinary tract infection, site not specified; R53.1 Weakness; Z79.899 Other long term (current) drug therapy; Z88.8 Allergy status to other drugs, medicaments and biological substances; Z88.2 Allergy status to sulfonamides; J90 Pleural effusion, not elsewhere classified; Z66 Do not resuscitate; Z87.891 Personal history of nicotine dependence
CPT/HCPCS: 36415; 71045; 80048; 80053; 81001; 83880; 85025; 87077; 87086; 87186; 93005; 93010; 93306; 96372; 96374; 96375; 96376; 97112; 97161; 97166; 97530; 99285-25; A9270-GY; G0378; J0696; J1650; J1940; U0002

== ENCOUNTER 2019-11-08 12:02 | Observation (INO) | payer OTHER ==
[~2019-11-08] VITALS: Ht 177.8 cm; Wt 87.5 kg
[~2019-11-08 12:02] MED LIST changes: +AZO BLADDER CO300 MG PO; +Afeditab Cr30 MG PO; +DOXA4 PO; +FURO40 PO; +LACT PO; +LEVSOD100 PO; +MULTI-VITAMIN1 EAC2 PO
[2019-11-08 13:18] LABS: BASOPHILS ABSOLUTE AUTO 0.01 K/mm3 (0.00-0.23); BASOPHILS PERCENT AUTO 0 % (0-2); EOSINOPHILS ABSOLUTE AUTO 0.11 K/mm3 (0.00-0.68); EOSINOPHILS PERCENT AUTO 5 % (0-6); Hematocrit 26.2 % (37.0-53.0); Hemoglobin 8.7 g/dL (13.5-17.5); IMMATURE GRAN ABSOLUTE AUTO 0.04 K/mm3 (0.00-0.10); IMMATURE GRAN PERCENT AUTO 2 % (0-1); LYMPHOCYTES ABSOLUTE AUTO 0.58 K/mm3 (0.84-5.20); LYMPHOCYTES PERCENT AUTO 25 % (21-46); MONOCYTES ABSOLUTE AUTO 0.06 K/mm3 (0.16-1.47); MONOCYTES PERCENT AUTO 3 % (4-13); Mean Corpuscular HGB 33.5 pg (26.0-34.0); Mean Corpuscular HGB Conc 33.2 g/dL (31.5-36.5); Mean Corpuscular Volume 101 fL (80-100); Mean Platelet Volume 12.5 fL (9.1-12.4); NEUTROPHILS ABSOLUTE AUTO 1.49 K/mm3 (1.96-9.15); NEUTROPHILS PERCENT AUTO 65 % (41-73); Platelet Count 95 K/mm3 (150-400); RDW Coefficient Variation 18.1 % (11.7-14.2); RDW Standard Deviation 67.5 fL (35.1-46.3); White Blood Cell Count 2.29 K/mm3 (4.00-11.30)
[2019-11-08 13:26] LABS: Alanine Aminotransfer (ALT/SGP 20 U/L (12-78); Albumin, Blood 3.1 g/dL (3.4-5.0); Albumin/Globulin Ratio 0.7 (0.8-1.8); Alk Phos 99 U/L (50-136); Anion Gap 6 mmol/L (6-16); Aspartate Aminotrans (AST/SGOT 14 U/L (12-37); Bilirubin, Total 0.7 mg/dL (0.1-1.0); Blood Urea Nitrogen 31 mg/dL (8-24); Bun/Creatinine Ratio 16.9 (12.0-20.0); CO2, Blood 26 mmol/L (21-32); Calcium, Blood 8.6 mg/dL (8.5-10.1); Chloride, Blood 102 mmol/L (98-108); Creatinine, Blood 1.83 mg/dL (0.60-1.20); Globulin, Blood 4.2 g/dL (2.2-4.0); Glomerular Filtration Rate 37 (60-); Glucose, Blood 109 mg/dL (70-99); Potassium, Blood 4.3 mmol/L (3.5-5.5); Sodium, Blood 134 mmol/L (136-145); Total Protein, Blood 7.3 g/dL (6.4-8.2); Troponin I <0.015 ng/mL (0.000-0.040)
[2019-11-08 13:40] LABS: Source, Urine Clean Catch
[2019-11-08 13:43] LABS: Appearance, Urine Clear (Clear); Bilirubin, Urine Neg (Neg); Blood, Urine 1+ (Neg); Color, Urine Yellow (P-Yellow); Glucose Qualitative, Urine Neg (Neg); Ketones, Urine Neg (Neg); Leukocyte Esterase, Urine 1+ (Neg); Nitrite, Urine Neg (Neg); Protein, Urine Neg (Neg); Urobilinogen, Urine NORM (Normal)
[2019-11-08 13:56] LABS: Bacteria Few /hpf; Squamous Epithelial Cells Rare /hpf (Few); White Blood Cells, Urine 0-2 /hpf (0-5)
[2019-11-08] MEDS ORDERED: MIRALAX17 GM PO (16:19)
[2019-11-08] MEDS ORDERED: NARCAN4 M1 (16:20)
[2019-11-08] MEDS ORDERED: VITAMIN D31000 UNI1 PO (16:21)
[2019-11-08] MEDS ORDERED: DICLOFENAC SOD100 G1 TOP (16:21)
[2019-11-08] MEDS ORDERED: DOCU100 PO (16:22)
[2019-11-08] MEDS ORDERED: Loratadine10 MG PO (16:23)
[2019-11-08] MEDS ORDERED: HYDR1TAB94 PO (16:24)
[2019-11-08 17:12] LABS: Hematocrit 24.7 % (37.0-53.0); Hemoglobin 8.2 g/dL (13.5-17.5); Mean Corpuscular HGB 33.6 pg (26.0-34.0); Mean Corpuscular HGB Conc 33.2 g/dL (31.5-36.5); Mean Corpuscular Volume 101 fL (80-100); Mean Platelet Volume 12.7 fL (9.1-12.4); Platelet Count 91 K/mm3 (150-400); RDW Coefficient Variation 17.9 % (11.7-14.2); RDW Standard Deviation 66.5 fL (35.1-46.3); Red Blood Cell Count 2.44 M/mm3 (4.30-5.90); White Blood Cell Count 2.28 K/mm3 (4.00-11.30)
[2019-11-08 17:35] LABS: BAND PERCENT MAN 5 % (0-8); BASOPHILS PERCENT MAN 0 % (0-2); EOSINOPHILS ABSOLUTE MAN 0.06 K/mm3 (0.00-0.68); EOSINOPHILS PERCENT MAN 3 % (0-6); LYMPHOCYTES ABSOLUTE MAN 0.61 K/mm3 (0.84-5.20); LYMPHOCYTES PERCENT MAN 27 % (21-46); MONOCYTES ABSOLUTE MAN 0.04 K/mm3 (0.16-1.47); MONOCYTES PERCENT MAN 2 % (4-13); NEUTROPHILS ABSOLUTE MAN 1.55 K/mm3 (1.96-9.15); SEG NEUTROPHILS PERCENT MAN 63 % (41-73); TOTAL CELLS COUNTED 100
--- NOTE | 2019-11-08 19:02 | NUR ---
ASSUMED CARE OF PT AT 1815. PT ADMITTED FOR GENERAL WEAKNESS. HX OF HTN, AFIB, HYPOTHYROID, CKD, CHRONIC UTI, AND GI BLEEDS. PT SELF CATHS. PT ORIENTED TO THE ROOM AND IS RESTING COMFORTABLY IN BED.
--- NOTE | 2019-11-08 20:30 | NUR ---
ASSUMED CARE. DAMIAN IS AOX3, VERY TIRED AND FATIQUED. STATES HE HAS NOT SLEPT IN OVER A WEEK. HE WILL GET ONE DAY AND THEN STAY UP FOR DAYS AT A TIME. DOES NOT KNOW WHAT IS KEEPING HIM UP. LUNG SOUNDS CLEAR THROUGHOUT. HR REGULAR SINUS WITH SLIGHT MURMUR. NO PAIN NOTED. NO N/T. SELF CATH EVERY 6 HOURS. ASSISTED HIM HE WAS ABLE TO USE 14 F AT BEDSIDE, VOIDED 600CC OUTPUT. GAVE NIGHT MEDS, SERQUEL PER ORDERS. WILL MONITOR TO SEE IF IT HELPS HIM. TUCKED HIM BACK INTO BED, CALL LIGHT IN REACH.
[2019-11-09 05:32] LABS: BASOPHILS ABSOLUTE AUTO 0.01 K/mm3 (0.00-0.23); BASOPHILS PERCENT AUTO 1 % (0-2); EOSINOPHILS ABSOLUTE AUTO 0.08 K/mm3 (0.00-0.68); EOSINOPHILS PERCENT AUTO 4 % (0-6); Hematocrit 24.9 % (37.0-53.0); Hemoglobin 8.2 g/dL (13.5-17.5); IMMATURE GRAN ABSOLUTE AUTO 0.02 K/mm3 (0.00-0.10); IMMATURE GRAN PERCENT AUTO 1 % (0-1); LYMPHOCYTES ABSOLUTE AUTO 0.61 K/mm3 (0.84-5.20); LYMPHOCYTES PERCENT AUTO 29 % (21-46); MONOCYTES ABSOLUTE AUTO 0.06 K/mm3 (0.16-1.47); MONOCYTES PERCENT AUTO 3 % (4-13); Mean Corpuscular HGB 33.2 pg (26.0-34.0); Mean Corpuscular HGB Conc 32.9 g/dL (31.5-36.5); Mean Corpuscular Volume 101 fL (80-100); Mean Platelet Volume 12.5 fL (9.1-12.4); NEUTROPHILS ABSOLUTE AUTO 1.35 K/mm3 (1.96-9.15); NEUTROPHILS PERCENT AUTO 63 % (41-73); NRBC ABSOLUTE 0.02 K/mm3 (0.00-0.02); NRBC Auto 0.9 /100 WBC (0.0-0.2); Platelet Count 100 K/mm3 (150-400); RDW Coefficient Variation 17.7 % (11.7-14.2); RDW Standard Deviation 65.9 fL (35.1-46.3); Red Blood Cell Count 2.47 M/mm3 (4.30-5.90); White Blood Cell Count 2.13 K/mm3 (4.00-11.30)
[2019-11-09 05:52] LABS: Bun/Creatinine Ratio 16.1 (12.0-20.0); Calcium, Blood 8.3 mg/dL (8.5-10.1); Creatinine, Blood 1.68 mg/dL (0.60-1.20); Potassium, Blood 4.1 mmol/L (3.5-5.5)
--- NOTE | 2019-11-09 06:29 | NUR ---
SHIFT SUMMARY: DAMIAN AOX3, DENIED ANY PAIN THIS SHIFT. HE WAS ABLE TO STAND AT SIDE OF BED FOR PERIOD OF SELF CATH WHICH WAS ABOUT 4-5 MINUTES AT A TIME. THEN HIS LEGS WOULD START TO SWAY CAUSING HIM TO NEED TO SIT DOWN. HE HAD GOOD OUTPUT EACH TIME. GFR DID SHOW 41 WITH CREATININ OF 1.68. HIS H/H. RBC AND PLATLETS ARE LOW. HE DID TAKE THE SEREQUEL LAST NIGHT, WAS ABLE TO SLEEP WELL BUT WOULD WAKE UP FOR THINGS LIKE HEART BURN, AND LEG CRAMPS. VS WNL, AFEBRILE. IN CONTACT ISOLATION FOR ESBL IN THE URINE. WILL REPORT TO DAY SHIFT WHEN THEY ARRIVE. CALL LIGHT IS IN REACH AND BED ALARM IS ON.
--- NOTE | 2019-11-09 19:14 | NUR ---
SHIFT SUMMARY: NO ACUTE CHANGES TO REPORT THIS SHIFT. PT A&O; CALM AND COOPERATIVE WITH CARE. PT HX SELF-CATH @ HOME; PT SELF CATHS HERE c EQUIPMENT & ASSISTANCE. PT & OT FOLLOWING; RECOMMENDING LTC. REPORT GIVEN TO ONCOMING RN.
--- NOTE | 2019-11-10 04:11 | NUR ---
PNEUMATIC TUBE REPAIRER SUMMARY PT WAS PLEASANT AND COOPERATIVE DURING THE NIGHT REPORTING NO PAIN OR NAUSEA. PT USED SELF CATH TO VOID AND EXTRA CATH KITS WERE PROVIDED AT THE PT'S ROOM. PT RECIEVED 2100 MEDS AND SLEPT FOR THE DURATION OF THE SHIFT. PT IS CURRENTLY SLEEPING WITH THE BED ALARM ON AND CALL LIGHT IN REACH.
[2019-11-10 05:33] LABS: Hematocrit 24.4 % (37.0-53.0); Mean Corpuscular HGB 33.1 pg (26.0-34.0); Mean Corpuscular HGB Conc 32.8 g/dL (31.5-36.5); Mean Corpuscular Volume 101 fL (80-100); Mean Platelet Volume 11.2 fL (9.1-12.4); Platelet Count 83 K/mm3 (150-400); RDW Coefficient Variation 17.6 % (11.7-14.2); Red Blood Cell Count 2.42 M/mm3 (4.30-5.90); White Blood Cell Count 2.18 K/mm3 (4.00-11.30)
[2019-11-10 05:56] LABS: Bun/Creatinine Ratio 16.5 (12.0-20.0); Calcium, Blood 8.5 mg/dL (8.5-10.1); Creatinine, Blood 1.64 mg/dL (0.60-1.20); Potassium, Blood 4.3 mmol/L (3.5-5.5)
[2019-11-10 06:00] LABS: BAND PERCENT MAN 2 % (0-8); BASOPHILS PERCENT MAN 0 % (0-2); EOSINOPHILS ABSOLUTE MAN 0.04 K/mm3 (0.00-0.68); EOSINOPHILS PERCENT MAN 2 % (0-6); LYMPHOCYTES ABSOLUTE MAN 0.69 K/mm3 (0.84-5.20); LYMPHOCYTES PERCENT MAN 32 % (21-46); MONOCYTES ABSOLUTE MAN 0.06 K/mm3 (0.16-1.47); MONOCYTES PERCENT MAN 3 % (4-13); NEUTROPHILS ABSOLUTE MAN 1.37 K/mm3 (1.96-9.15); SEG NEUTROPHILS PERCENT MAN 61 % (41-73); TOTAL CELLS COUNTED 100
--- NOTE | 2019-11-10 19:14 | NUR ---
SHIFT SUMMARY: NO ACUTE EVENTS TO REPORT THIS SHIFT. PT A&O; CALM AND COOPERATIVE WITH CARE. NO C/O PAIN/NAUSEA THIS SHIFT. PT SELF CATHS Q6 @ HOME; PT INDEPENDENTLY SELF CATHS HERE WITH OUR EQUUIPMENT & SUPERVISION. PT & OT FOLLOWING; AWAITING PLACEMENT. REPORT GIVEN TO ONCOMING RN.
[2019-11-11 05:45] LABS: Hematocrit 24.1 % (37.0-53.0); Mean Corpuscular HGB 33.5 pg (26.0-34.0); Mean Corpuscular HGB Conc 33.2 g/dL (31.5-36.5); Mean Corpuscular Volume 101 fL (80-100); RDW Standard Deviation 66.9 fL (35.1-46.3); Red Blood Cell Count 2.39 M/mm3 (4.30-5.90); White Blood Cell Count 2.29 K/mm3 (4.00-11.30)
[2019-11-11 05:53] LABS: Mean Platelet Volume 13.2 fL (9.1-12.4); Platelet Count 83 K/mm3 (150-400)
--- NOTE | 2019-11-11 05:53 | NUR ---
SUMMARY NO ISSUES NOTED. PT SELF CATHS W/ OUT ISSUE. PT HAS SLEPT SOLIDLY T/O SHIFT. PT HAD BUSY DAY PRIOR AND IS TIRED. PT CURRENTLY SLEEPING W/ OUT ISSUE. CALL LIGHT IN REACH.
[2019-11-11 06:00] LABS: Calcium, Blood 8.4 mg/dL (8.5-10.1); Creatinine, Blood 1.67 mg/dL (0.60-1.20); Potassium, Blood 4.3 mmol/L (3.5-5.5)
[2019-11-11 06:05] LABS: BAND PERCENT MAN 3 % (0-8); BASOPHILS ABSOLUTE MAN 0.04 K/mm3 (0.00-0.23); BASOPHILS PERCENT MAN 2 % (0-2); EOSINOPHILS ABSOLUTE MAN 0.11 K/mm3 (0.00-0.68); EOSINOPHILS PERCENT MAN 5 % (0-6); LYMPHOCYTES ABSOLUTE MAN 0.61 K/mm3 (0.84-5.20); LYMPHOCYTES PERCENT MAN 27 % (21-46); MONOCYTES ABSOLUTE MAN 0.09 K/mm3 (0.16-1.47); MONOCYTES PERCENT MAN 4 % (4-13); NEUTROPHILS ABSOLUTE MAN 1.41 K/mm3 (1.96-9.15); SEG NEUTROPHILS PERCENT MAN 59 % (41-73); TOTAL CELLS COUNTED 100
[2019-11-11] MEDS ORDERED: AMOCLA500 PO (15:07)
[2019-11-11] MEDS ORDERED: Cranberry300 MG PO (15:08)
[2019-11-11] MEDS ORDERED: Vitamin D2000 UNIT PO (15:08)
[2019-11-11] MEDS ORDERED: DICLOFENAC SOD100 G1 TOP (15:09)
[2019-11-11 17:07] LABS: Percent Saturation 34.1 % (20.0-50.0)
--- NOTE | 2019-11-11 17:38 | NUR ---
PT IS A/OX3, PLEASANT AND COOPERATIVE, THE PT IS UP WITH MINIMAL ASSIST TO THE BATHROOM, THE PT STRAIGHT CATHS IN THE BATHROOM WITH PROVIDED SUPPLIES, PT APPEARS TO BE BREATHING EASILY WITHOUT OXYGEN, PT DENIED ANY PAIN OR N/V TODAY, CALL LIGHT IN REACH, FAMILY AT THE BEDSIDE AT THIS TIME, WILL CONTINUE TO MONITOR AND ASSESS FOR CHANGES
--- NOTE | 2019-11-11 20:16 | NUR ---
ASSUMED CARE. DAMIAN IS AOX3, WAS HOPING TO GO HOME TODAY BUT HE IS AWAITING TEST RESULTS THAT ARE NOT BACK YET. STATES HE IS NOT SURE IF HE WILL BE GOING TO SNF OR GOING HOME WITH HIS DAUGHTER TO HELP. MAY ALSO HAVE CAREGIVERS. DENIES ANY CARDIAC SYMPTOMS. LUNGS ARE CLEAR. NO BURNING WHEN HE SELF CATHS. STILL UNSTEADY ON HIS FEET BUT HAS IMPROVED. USES WALKER. CALL LIGHT IN REACH, WILL CONTINUE TO MONITOR.
--- NOTE | 2019-11-12 05:59 | NUR ---
SHIFT SUMMARY: DAMIAN HAD MINIMAL PAIN WHEN GOING TO BED, KEEPING HIM AWAKE. GAVE NORCO X1 WHICH HELPED HIM SLEEP COMFORTABLY REST OF SHIFT. VS REMAINED STABLE, AFEBRILE. OUTPUT FROM STRAIGHT CATH WAS 900. REMAINED QUIET WITH VERY LITTLE NEEDS THIS SHIFT. CALL LIGHT REMAINED IN REACH.
[2019-11-12 06:12] LABS: Hematocrit 24.6 % (37.0-53.0); Hemoglobin 8.2 g/dL (13.5-17.5); Mean Corpuscular HGB 33.5 pg (26.0-34.0); Mean Corpuscular HGB Conc 33.3 g/dL (31.5-36.5); Mean Corpuscular Volume 100 fL (80-100); Mean Platelet Volume 12.5 fL (9.1-12.4); NRBC ABSOLUTE 0.02 K/mm3 (0.00-0.02); NRBC Auto 0.9 /100 WBC (0.0-0.2); Platelet Count 86 K/mm3 (150-400); RDW Coefficient Variation 18.1 % (11.7-14.2); RDW Standard Deviation 66.7 fL (35.1-46.3); Red Blood Cell Count 2.45 M/mm3 (4.30-5.90); White Blood Cell Count 2.14 K/mm3 (4.00-11.30)
[2019-11-12 06:34] LABS: Albumin, Blood 2.8 g/dL (3.4-5.0); Albumin/Globulin Ratio 0.8 (0.8-1.8); BAND PERCENT MAN 2 % (0-8); BASOPHILS ABSOLUTE MAN 0.06 K/mm3 (0.00-0.23); BASOPHILS PERCENT MAN 3 % (0-2); Calcium, Blood 8.5 mg/dL (8.5-10.1); Creatinine, Blood 1.61 mg/dL (0.60-1.20); EOSINOPHILS ABSOLUTE MAN 0.14 K/mm3 (0.00-0.68); EOSINOPHILS PERCENT MAN 7 % (0-6); Globulin, Blood 3.7 g/dL (2.2-4.0); LYMPHOCYTES ABSOLUTE MAN 0.62 K/mm3 (0.84-5.20); LYMPHOCYTES PERCENT MAN 29 % (21-46); MONOCYTES ABSOLUTE MAN 0.14 K/mm3 (0.16-1.47); MONOCYTES PERCENT MAN 7 % (4-13); MYELOCYTE ABSOLUTE MAN 0.02 K/mm3 (0.00-0.00); MYELOCYTE PERCENT MAN 1 % (0-0); NEUTROPHILS ABSOLUTE MAN 1.13 K/mm3 (1.96-9.15); SEG NEUTROPHILS PERCENT MAN 51 % (41-73); TOTAL CELLS COUNTED 100; Total Protein, Blood 6.5 g/dL (6.4-8.2)
--- NOTE | 2019-11-12 16:36 | NUR ---
PT IS A/OX3, PLEASANT AND COOPERATIVE, THE PT IS UP IND IN HIS ROOM, THE PT STRAIGHT CATHS HIMSELF WITH PROVIDED EQUIPMENT, PT APPEARS TO BE BREATHING EASILY ON RA, PT DENIED ANY PAIN OR N/V T/O THE DAY, THE PTS DAUGHTER IS AT THE BEDSIDE AT THIS TIME, CALL LIGHT IN REACH, NO OTHER CHANGES NOTICED THIS SHIFT
--- NOTE | 2019-11-12 20:44 | NUR ---
ASSUMED CARE: DAMIAN STILL FATIQUED, TIRED, BUT FEELS A LITTLE MORE STRONGER THEN HE HAS BEEN. HE IS ABLE TO GET UP AND MOVE AROUND THE ROOM WITHOUT BEING UNSTEADY. MAKING TO THE BATHROOM AND BACK ON HIS OWN. PAIN IS GENERALIZED IN JOINTS AND BACK. RUNNING 3/10 AT THIS TIME. LUNG SOUNDS ARE DIMINISHED THROUGHOUT, ENCOURAGED DEEP BREATHING EXERCISES. DOES HAVE OCCATIONAL COUGH, NO PRODUCTION. DRY. DENIES ANY NEEDS, CALL LIGHT IN REACH.
--- NOTE | 2019-11-13 05:19 | NUR ---
SHIFT SUMMARY: DAMIAN SLEPT WELL THROUGHOUT THE NIGHT. VS WNL, AFEBRILE. SELF CATH ONCE THIS SHIFT. PAIN MEDICATION GIVEN PRIOR TO BED. NO ACUTE CHANGES OR CONCERNS TO NOTE. WILL REPORT TO DAY SHIFT. CALL LIGHT WITH IN REACH.
[2019-11-13 06:08] LABS: Hemoglobin 8.5 g/dL (13.5-17.5); Mean Corpuscular HGB 33.3 pg (26.0-34.0); Mean Corpuscular HGB Conc 32.7 g/dL (31.5-36.5); Mean Corpuscular Volume 102 fL (80-100); Mean Platelet Volume 12.9 fL (9.1-12.4); NRBC ABSOLUTE 0.04 K/mm3 (0.00-0.02); NRBC Auto 1.7 /100 WBC (0.0-0.2); Platelet Count 89 K/mm3 (150-400); RDW Coefficient Variation 18.6 % (11.7-14.2); RDW Standard Deviation 67.6 fL (35.1-46.3); Red Blood Cell Count 2.55 M/mm3 (4.30-5.90); White Blood Cell Count 2.31 K/mm3 (4.00-11.30)
[2019-11-13 06:46] LABS: Anion Gap 6 mmol/L (6-16); Blood Urea Nitrogen 30 mg/dL (8-24); Bun/Creatinine Ratio 18.2 (12.0-20.0); CO2, Blood 25 mmol/L (21-32); Calcium, Blood 8.7 mg/dL (8.5-10.1); Chloride, Blood 104 mmol/L (98-108); Creatinine, Blood 1.65 mg/dL (0.60-1.20); Glomerular Filtration Rate 42 (60-); Glucose, Blood 87 mg/dL (70-99); Phosphorus, Blood 3.7 mg/dL (2.5-4.9); Potassium, Blood 4.4 mmol/L (3.5-5.5); Sodium, Blood 135 mmol/L (136-145)
[2019-11-13 06:58] LABS: BAND PERCENT MAN 1 % (0-8); BASOPHILS PERCENT MAN 0 % (0-2); EOSINOPHILS ABSOLUTE MAN 0.16 K/mm3 (0.00-0.68); EOSINOPHILS PERCENT MAN 7 % (0-6); LYMPHOCYTES ABSOLUTE MAN 0.53 K/mm3 (0.84-5.20); LYMPHOCYTES PERCENT MAN 23 % (21-46); MONOCYTES PERCENT MAN 0 % (4-13); NEUTROPHILS ABSOLUTE MAN 1.61 K/mm3 (1.96-9.15); SEG NEUTROPHILS PERCENT MAN 69 % (41-73); TOTAL CELLS COUNTED 100
[2019-11-13 16:06] LABS: Bilirubin, Urine Neg (Neg); Blood, Urine 2+ (Neg); Glucose Qualitative, Urine Neg (Neg); Ketones, Urine Neg (Neg); Leukocyte Esterase, Urine 3+ (Neg); Nitrite, Urine Neg (Neg); Protein, Urine 1+ (Neg); Specific Gravity, Urine 1.015 (1.003-1.022); Urobilinogen, Urine 1+ (Normal)
[2019-11-13 16:22] LABS: Appearance, Urine Hazy (Clear); Color, Urine Yellow (P-Yellow)
[2019-11-13 16:24] LABS: Red Blood Cells, Urine 0-2 /hpf (0-2); White Blood Cells, Urine 50-100 /hpf (0-5)
[2019-11-13 16:25] LABS: Bacteria Many /hpf; Squamous Epithelial Cells Rare /hpf (Few)
--- NOTE | 2019-11-13 18:29 | NUR ---
Initial spiritual care note: Mr. Suggs is a very pleasant, personable man. He lives alone in a group home community. His has dementia and lives in [facility]. He feels well loved and supported by his dtr, Marlene. He tells me he is not fearful of dying. He claims a rather eccelctic spirituality that I affirmed and supported. He declined prayer, but appeared to enjoy telling me about his beleifs and philosophies. He is hoping for more quality time. I will remain available.
--- NOTE | 2019-11-13 19:03 | NUR ---
SHIFT SUMMARY: NO ACUTE CHANGES TO REPORT THIS SHIFT. PT A&O; CALM AND COOPERATIVE WITH CARE. MNO C/O PAIN/NAUSEA THIS SHIFT. MEDICATED FOR FEVER X1 THIS SHIFT; PT CURRENTLY AFEBRILE. O2 SATS DECREASED DURING SLEEP; CONT BIOX ORDERED; SATS IN UPPER 90s ON ROOM AIR; CHEST X-RAY NEGATIVE FOR ACUTE PROCESS. PT SELF CATHS WITH OUR EQUIPMENT & SBA. PT & OT FOLLOWING. AWAITING PLACEMENT. REPORT GIVEN TO ONCOMING RN.
--- NOTE | 2019-11-13 20:11 | NUR ---
ASSUMED CARE. DAMIAN WAS PLACED ONTO CONTINUOUS PULSE OX DUE TO POOR OXYGENATION IN THE BLOOD STREAM. HE HAS BEEN RUNNING 98% ON RA. HE GETS REALLY COLD AND HANDS DON'T READ GOOD SATS. STATES HE IS FEELING BETTER. DID NOTE UA SHOWED SOME BACTERIA. ENCOURAGED HIM TO MAKE SURE HE USES A NEW STRAIGHT CATH EACH TIME HE URINATES AND WASH HANDS BEFORE AND AFTER. HE SAID HE HAS BEEN, EXCEPT HE USES THE CATHETER TWICE THEN THROWS IT AWAY. GAVE CRANBERRY JUICE TO HELP. CLOSED DOOR AFTER MEDS GIVEN TO HELP KEEP ROOM WARM FOR HIM. CALL LIGHT IS IN REACH.
--- NOTE | 2019-11-14 05:39 | NUR ---
SHIFT SUMMARY: VS WNL, AFEBRILE. SLEPT WELL THROUGHOUT THE NIGHT. SLEEP STUDY PERFORMED AND COMPLETED. SATS WHEN CHECKED WERE IN 90'S. NORCO GIVEN FOR PAIN. UA SENT TO CULTURE, DISCUSSED PROPER ROUTINE FOR SELF CATHERIZATION TO PREVENT INFECTION. HE STATES HE THINKS HE IS COLONIZED, HE HAS HAD SEVERAL INFECTIONS IN PAST. NO OTHER CHANGES THIS SHIFT. WILL REPORT TO DAY SHIFT.
[2019-11-14] MEDS ORDERED: QUET25 PO (12:07)
== END 2019-11-14 14:36 | disposition home health service (06) ==
LOC: ER 12:02 → ERHOLD 12:03 → MEDS 12:03
PROVIDERS: Family Medicine; Internal Medicine; Nurse Practitioner Acute Care; Physician Assistant; ADMIT Internal Medicine
DX: R53.1 Weakness (principal); D61.818 Other pancytopenia; G47.00 Insomnia, unspecified; E03.9 Hypothyroidism, unspecified; N13.9 Obstructive and reflux uropathy, unspecified; I12.9 Hypertensive chronic kidney disease with stage 1 through stage 4 chronic kidney disease, or unspecified chronic kidney disease; N18.3 Chronic kidney disease, stage 3 (moderate); K21.9 Gastro-esophageal reflux disease without esophagitis; D63.1 Anemia in chronic kidney disease; Z88.2 Allergy status to sulfonamides; Z88.8 Allergy status to other drugs, medicaments and biological substances; Z79.899 Other long term (current) drug therapy; Z87.891 Personal history of nicotine dependence; Z87.440 Personal history of urinary (tract) infections; I48.91 Unspecified atrial fibrillation
CPT/HCPCS: 36415; 51701; 51798; 71046; 74176; 80048; 80053; 80069; 81001; 82272; 82607; 82728; 82746; 83540; 83550; 83880; 84443; 84484; 85007; 85025; 85027; 87040; 87077; 87086; 87186; 93005; 93010; 94762; 97110; 97116-CQ; 97161; 97165; 97535; 99285-25; A9270; A9270-GY; G0103; G0378

== ENCOUNTER 2019-12-22 15:37 | Inpatient (IN) | payer OTHER ==
[~2019-12-22] VITALS: Ht 172.7 cm; Wt 87.0 kg
[~2019-12-22 15:37] MED LIST changes: +DICLOFENAC SOD100 G1 TOP; -DOXA4 PO; -FURO40 PO; -LEVSOD100 PO; -MULTI-VITAMIN1 EAC2 PO; +VITAMIN D31000 UNI1 PO
[2019-12-22 16:11] LABS: BASOPHILS PERCENT AUTO 0 % (0-2); EOSINOPHILS PERCENT AUTO 0 % (0-6); Hematocrit 24.4 % (37.0-53.0); Hemoglobin 7.9 g/dL (13.5-17.5); IMMATURE GRAN ABSOLUTE AUTO 0.03 K/mm3 (0.00-0.10); IMMATURE GRAN PERCENT AUTO 1 % (0-1); LYMPHOCYTES ABSOLUTE AUTO 0.36 K/mm3 (0.84-5.20); LYMPHOCYTES PERCENT AUTO 14 % (21-46); MONOCYTES ABSOLUTE AUTO 0.06 K/mm3 (0.16-1.47); MONOCYTES PERCENT AUTO 2 % (4-13); Mean Corpuscular HGB 32.9 pg (26.0-34.0); Mean Corpuscular HGB Conc 32.4 g/dL (31.5-36.5); Mean Corpuscular Volume 102 fL (80-100); NEUTROPHILS ABSOLUTE AUTO 2.19 K/mm3 (1.96-9.15); NEUTROPHILS PERCENT AUTO 83 % (41-73); NRBC ABSOLUTE 0.03 K/mm3 (0.00-0.02); NRBC Auto 1.1 /100 WBC (0.0-0.2); Platelet Count 76 K/mm3 (150-400); RDW Coefficient Variation 20.2 % (11.7-14.2); RDW Standard Deviation 76.1 fL (35.1-46.3); White Blood Cell Count 2.64 K/mm3 (4.00-11.30)
[2019-12-22 16:31] LABS: Mean Platelet Volume 12.5 fL (9.1-12.4)
[2019-12-22 16:33] LABS: Albumin, Blood 3.1 g/dL (3.4-5.0); Albumin/Globulin Ratio 0.7 (0.8-1.8); Bilirubin, Total 1.7 mg/dL (0.1-1.0); Bun/Creatinine Ratio 18.6 (12.0-20.0); Calcium, Blood 8.5 mg/dL (8.5-10.1); Creatinine, Blood 1.83 mg/dL (0.60-1.20); Globulin, Blood 4.3 g/dL (2.2-4.0); Magnesium, Blood 2.3 mg/dL (1.6-2.4); Potassium, Blood 4.1 mmol/L (3.5-5.5); Total Protein, Blood 7.4 g/dL (6.4-8.2); Troponin I 0.116 ng/mL (0.000-0.040)
[2019-12-22] MEDS ORDERED: DOXA4 PO (16:59)
[2019-12-22] MEDS ORDERED: MULTI-VITAMIN1 EAC2 PO (16:59)
[2019-12-22] MEDS ORDERED: OMEP20ER PO (16:59)
[2019-12-22] MEDS ORDERED: LISI20 PO (16:59)
[2019-12-22] MEDS ORDERED: LEVSOD100 PO (16:59)
[2019-12-22] MEDS ORDERED: ACET500 PO (17:00)
[2019-12-22] MEDS ORDERED: MIRALAX17 GM PO (17:00)
[2019-12-22] MEDS ORDERED: FURO40 PO (17:00)
[2019-12-22] MEDS ORDERED: Loratadine10 MG PO (17:01)
[2019-12-22] MEDS ORDERED: DOCU100 PO (17:01)
[2019-12-22] MEDS ORDERED: NARCAN4 M1 (17:01)
[2019-12-22] MEDS ORDERED: HYDR1TAB94 PO (17:01)
[2019-12-22] MEDS ORDERED: Vitamin D2000 UNIT PO (17:02)
[2019-12-22] MEDS ORDERED: AMOCLA500 PO (17:02)
[2019-12-22] MEDS ORDERED: Cranberry300 MG PO (17:02)
[2019-12-22] MEDS ORDERED: DICLOFENAC SOD100 G1 TOP (17:03)
[2019-12-22] MEDS ORDERED: QUET25 PO (17:03)
[2019-12-22 17:08] LABS: Source, Urine Catheter
[2019-12-22 17:45] LABS: Appearance, Urine Hazy (Clear); Blood, Urine 1+ (Neg); Color, Urine Yellow (P-Yellow); Glucose Qualitative, Urine Neg (Neg); Ketones, Urine Neg (Neg); Leukocyte Esterase, Urine 3+ (Neg); Nitrite, Urine Neg (Neg); Protein, Urine 1+ (Neg); Specific Gravity, Urine 1.015 (1.003-1.022); Urobilinogen, Urine 1+ (Normal)
[2019-12-22] MEDS ORDERED: BACL10 PO (17:47)
[2019-12-22] MEDS ORDERED: Mirtazapine7.5 MG PO (17:52)
[2019-12-22 18:02] LABS: Bilirubin, Urine 1+ (Neg)
[2019-12-22 18:04] LABS: Bacteria Many /hpf; Squamous Epithelial Cells Rare /hpf (Few)
[2019-12-22 18:08] LABS: Adenovirus Not Detected (NOT DETECT); Bordetella pertussis Not Detected (NOT DETECT); Chlamydophila pneumoniae Not Detected (NOT DETECT); Coronavirus 229E Not Detected (NOT DETECT); Coronavirus HKU1 Not Detected (NOT DETECT); Coronavirus NL63 Not Detected (NOT DETECT); Coronavirus OC43 Not Detected (NOT DETECT); Human Metapneumovirus Not Detected (NOT DETECT); Human Rhinovirus/Enterovirus Not Detected (NOT DETECT); Influenza A/2009-H1 Not Detected (NOT DETECT); Influenza A/H1 Not Detected (NOT DETECT); Influenza A/H3 Not Detected (NOT DETECT); Influenza B Not Detected (NOT DETECT); Mycoplasma pneumoniae Not Detected (NOT DETECT); Parainfluenza Virus 1 Not Detected (NOT DETECT); Parainfluenza Virus 2 Not Detected (NOT DETECT); Parainfluenza Virus 3 Not Detected (NOT DETECT); Parainfluenza Virus 4 Not Detected (NOT DETECT); Respiratory Syncytial Virus Not Detected (NOT DETECT); SARS-Cov-2 (COVID-19), BioFire Not Detected (NOT DETECT)
[2019-12-22] MEDS ORDERED: AMMONIUM LAC TOP (18:41)
[2019-12-22] MEDS ORDERED: [UNRECOGNIZED DRUG - OTHER] TOP (18:41)
[2019-12-23 00:29] LABS: BASOPHILS ABSOLUTE AUTO 0.01 K/mm3 (0.00-0.23); BASOPHILS PERCENT AUTO 0 % (0-2); EOSINOPHILS ABSOLUTE AUTO 0.01 K/mm3 (0.00-0.68); EOSINOPHILS PERCENT AUTO 0 % (0-6); Hematocrit 24.2 % (37.0-53.0); Hemoglobin 7.7 g/dL (13.5-17.5); IMMATURE GRAN ABSOLUTE AUTO 0.03 K/mm3 (0.00-0.10); IMMATURE GRAN PERCENT AUTO 1 % (0-1); LYMPHOCYTES ABSOLUTE AUTO 0.36 K/mm3 (0.84-5.20); LYMPHOCYTES PERCENT AUTO 14 % (21-46); MONOCYTES ABSOLUTE AUTO 0.06 K/mm3 (0.16-1.47); MONOCYTES PERCENT AUTO 2 % (4-13); Mean Corpuscular HGB 32.6 pg (26.0-34.0); Mean Corpuscular HGB Conc 31.8 g/dL (31.5-36.5); Mean Corpuscular Volume 103 fL (80-100); NEUTROPHILS ABSOLUTE AUTO 2.15 K/mm3 (1.96-9.15); NEUTROPHILS PERCENT AUTO 82 % (41-73); NRBC ABSOLUTE 0.02 K/mm3 (0.00-0.02); NRBC Auto 0.8 /100 WBC (0.0-0.2); Platelet Count 69 K/mm3 (150-400); RDW Coefficient Variation 20.2 % (11.7-14.2); Red Blood Cell Count 2.36 M/mm3 (4.30-5.90); White Blood Cell Count 2.62 K/mm3 (4.00-11.30)
[2019-12-23 00:34] LABS: Mean Platelet Volume 13.5 fL (9.1-12.4)
[2019-12-23 00:48] LABS: Albumin, Blood 2.9 g/dL (3.4-5.0); Albumin/Globulin Ratio 0.8 (0.8-1.8); Bilirubin, Total 1.8 mg/dL (0.1-1.0); Bun/Creatinine Ratio 20.9 (12.0-20.0); Creatinine, Blood 1.63 mg/dL (0.60-1.20); Globulin, Blood 3.7 g/dL (2.2-4.0); Potassium, Blood 3.8 mmol/L (3.5-5.5); Total Protein, Blood 6.6 g/dL (6.4-8.2); Troponin I 0.142 ng/mL (0.000-0.040)
--- NOTE | 2019-12-23 01:30 | NUR ---
PHYSICIAN NOTIFIED PT'S HGB 7.7 UPON ARRIVAL. HGB LOWERED TO 7.9. PHYSICIAN PROVIDED NO INSTRUCTIONS AT THIS TIME.
--- NOTE | 2019-12-23 01:50 | NUR ---
UPDATE PATIENT BLADDER SCANNED BUT DENIES THE NEED TO BE STRAIGHT CATHED AT THIS TIME. PATIENT REPORTS HE IS ABLE TO TELL WHEN HE NEEDS TO BE STRAIGHT CATHED. PATIENT STATES HE IS NOT UNCOMFORTABLE AND WILL LET US KNOW WHEN HE IS READY TO BE STRAIGHT CATHED.
--- NOTE | 2019-12-23 05:59 | NUR ---
SHIFT SUMMARY PT ARRIVED TO UNIT FROM ED. PT GIVEN 2 L OF FLUIDS IN ED AND WAS ON MAINTENENCE FLUIDS AT 75/HR AT TRANSFER. PT BEGAN TO HAVE INCREASED CRACKLES AND COUGHING. IV FLUIDS STOPPED AND PHYSICIAN NOTIFIED. PHYSICIAN INSTRUCTION TO HOLD FLUIDS. PT REPORTS NO CP, PRESSURE OR SOB. PT STATED COUGH IMPROVED T/O NIGHT. PT UNABLE TO VOID ON OWN AND USES STRAIGHT CATH AT HOME. STRAIGHT CATH ORDERED PRN AND USED ONCE DURING SHIFT. HR REMAINS STABLE, BP STABLE. OXYGEN SATURATION ABOVE 92% ON RA. MEDICATIONS GIVEN PER EMAR TO REDUCE BACK PAIN REPORTED BY PT. PT ALERT AND ORIENTED. WILL CONTINUE TO MONITOR UNTIL REPORT GIVEN TO DAYSHIFT RN.
[2019-12-23 08:57] LABS: Troponin I 0.199 ng/mL (0.000-0.040)
--- NOTE | 2019-12-23 09:59 | NUR ---
IN NUC MED AT THIS TIME FOR HIDA SCAN. WILL START IV ABX WHEN RETURNS.
--- NOTE | 2019-12-23 14:17 | NUR ---
History, Chart, Medications and Allergies reviewed before start of procedure. Patient confirms NPO status and agrees with scheduled surgery. Pre-Op teaching done. Pt verbalizes understanding.
--- NOTE | 2019-12-23 14:58 | NUR ---
DR COLLAZO AT BEDSIDE TALKING WITH PATIENT. SURGERY CANCELLED. WILL RETURN PATIENT BACK TO ROOM.
--- NOTE | 2019-12-23 18:44 | NUR ---
SHIFT SUMMARY; A/A/OX4 DURING SHIFT. HIDA SCAN COMPLETE AND NO SURGERY INDICATED PER DR. COLLAZO. DIET ADVANCED TO CLEAR PER DR. COLLAZO ORDERS. MEDICATED THROUGHOUT SHIFT PER ORDERS, VSS, WILL CONTINUE TO MONITOR AND TREAT UNTIL CHANGE OF SHIFT.
--- NOTE | 2019-12-24 05:55 | NUR ---
SUMMARY PT IS A&O X4. HE WAS BLADDER SCANNED @0415 BUT REFUSED TO BE STRAIGHT CATHED BECAUSE PT STATED "THERE WAS NOT ENOUGH URINE YET", AND HE WANTED TO WAIT. HE WAS ON 2L OF 02 FOR ABOUT 4 HRS DUE TO COUGHING AND 02 SATS IN THE UPPER 80s, HE IS NOW BACK ON RA AND MAINTAINING 02 IN THE LOWER 90s. PT WAS HAVING MUSCLE SPASMS AND WAS MEDICATED SEE EMAR. AT 0030 THE PATIENTS IV STARTED LEAKING WHILE NS WAS BEING INFUSED, WHEN PT WAS TOLD HE NEEDED A NEW IV HE REFUSED AND STATED HE DID NOT WANT A NEW IV. HE WAS TURNED Q2 HRS AND NEEDED ASSISTANCE DUE TO GENERALIZED WEAKNESS. CALL LIGHT IS IN REACH AND BED IN LOW POSITION.
--- NOTE | 2019-12-24 08:21 | NUR ---
Dr. Gamino here to see the patient. Pt states he had pain 20/10 suddenly in his penis after the remy was inserted an hour prior. He states it is gone now. Also c/o abdominal bloating and cramping intermittently. States that he had so much pain with the straight catheterization that a Remy catheter was placed. States that his last bowel movement was yesterday. Dr discussing the CT results from yesterday with the pt.
--- NOTE | 2019-12-24 10:57 | NUR ---
Don was able to walk from bed to the bathroom toilet with staff assistance. Gait belt and FWW were both used. PT states is felt much better to get up and walk around.
[2019-12-24 11:43] LABS: Albumin, Blood 2.7 g/dL (3.4-5.0); Anion Gap 9 mmol/L (6-16); Blood Urea Nitrogen 30 mg/dL (8-24); Bun/Creatinine Ratio 20.7 (12.0-20.0); CO2, Blood 20 mmol/L (21-32); Calcium, Blood 8.1 mg/dL (8.5-10.1); Chloride, Blood 111 mmol/L (98-108); Creatinine, Blood 1.45 mg/dL (0.60-1.20); Glomerular Filtration Rate 49 (60-); Glucose, Blood 99 mg/dL (70-99); Phosphorus, Blood 2.5 mg/dL (2.5-4.9); Sodium, Blood 140 mmol/L (136-145)
--- NOTE | 2019-12-24 15:08 | NUR ---
Pt had fallen asleep and had taken off his oxygen. Cynosis of his lips noted, and spo2 was 80% on room air. Oxygen was applied and pt recovered in about 5 minutes to spo2 of 90-92% on 2 l/min oxygen delivery.
--- NOTE | 2019-12-24 16:35 | NUR ---
Maintaining spo2 97% on 2 l/min of oxygen, while sleeping/lying on his side. He awakens easily, states that he is intermittently having "pee Pain" which goes away very quickly. Denies need for pain medications at this time.
[2019-12-25 05:16] LABS: Albumin, Blood 2.5 g/dL (3.4-5.0); Anion Gap 6 mmol/L (6-16); Blood Urea Nitrogen 26 mg/dL (8-24); Bun/Creatinine Ratio 17.6 (12.0-20.0); CO2, Blood 23 mmol/L (21-32); Calcium, Blood 7.8 mg/dL (8.5-10.1); Chloride, Blood 110 mmol/L (98-108); Creatinine, Blood 1.48 mg/dL (0.60-1.20); Glomerular Filtration Rate 48 (60-); Glucose, Blood 104 mg/dL (70-99); Phosphorus, Blood 2.8 mg/dL (2.5-4.9); Potassium, Blood 3.6 mmol/L (3.5-5.5); Sodium, Blood 139 mmol/L (136-145)
--- NOTE | 2019-12-25 05:55 | NUR ---
SUMMARY PATIENT WAS COMPLAINING OF MUSCLE SPASMS, AND GENERALIZED PAIN PERIODICALLY THORUGHOUT THE NIGHT. HE WAS MEDICATED, SEE EMAR, AND REPOSITIONED FREQUENTLY TO ASSIST WITH THE DISOMFORT. HE SITS AT THE SIDE OF THE BED TO TAKE MEDICATION. PT HAS PERIODS OF COUGHING AND HIS 02 SATS DROP, 2L VIA NC AND PATIENTS 02 SATS MAINTAINED IN THE MID TO UPPER 90s. VSS, NO ACUTE CHANGES THOUGHOUT THE NIGHT. CALL LIGHT IN REACH AND BED IN LOW POSITON.
--- NOTE | 2019-12-25 13:42 | NUR ---
CALLED DR. KEANE. NOTIFIED HER OF PATIENT'S COUGH. PATIENT IS HAVING COUGHING FITS WHERE HE ALMOST THROWS UP BECAUSE HE IS COUGHING SO MUCH. I VISUALIZED THE SPUTUM AND IT IS CLEAR AND THIN. HE WAS HAVING SOME WHEEZING THIS AM BUT NONE WHEN I MOST RECENTLY LISTENED. DR. KEANE STATES SHE WILL PUT IN ORDERS FOR DUONEB, IF THAT DOESN'T HELP SHE MAY CONSIDER TESSALON PEARLS.
--- NOTE | 2019-12-25 14:01 | NUR ---
Spoke with Dr Velez during hospitalist meeting. Concerns of lung cancer with ale. Pt is electing to not pursue cancer treatment. Pt would benefit from discussion regarding hospice. Pt is sitting in chair upon arrival. Pt is A&OX4 and deneies pain at this time. Pt is a and this RN thanked him for his services. Pt begins to have coughing spell that is eventually resolved with expelling sputum. Pt reports having intermittent coughing spells. Engaged in therapeutic listening as Pt reports living at [facility]. Pt reports his lives at [facility]. Discussed finding that are concerning for cancer. Discussed options with Pt stating at his age he would not want to pursue treatment. Discussed hospice as an option and educated on hospice philosophy with V/U made by Pt. Pt is agreeable with hospice. Educated on the disease process and the potential of needing a higher level of care as disease takes its coarse. Discussed hospice agencies to choose from. Pt reports he will discuss choices further with daughter Marlene. Pt is agreeable for this RN to contact Marlene of his decision. No other concerns reported at this time. Called and spoke with daughter Marlene. Discussed Pt's wishes for hospice with Marlene being in agreement with his decision. Answered questions and discussed concerns. Marlene expresses appreciation of call and report no other concerns at this time. Spoke with Bedside RN Olive and Dr Joya. Discussed case and Pt's wishes for hospice. Called and spoke with Priyank Flores and discussed case. Placed hospice referral. Palliative Care will remain available.
--- NOTE | 2019-12-25 15:48 | NUR ---
PATIENT REPORTING PAIN IN HIS MID LOW CHEST THAT FEELS LIKE A CRAMP AND RADIATES ACROSS HIS LEFT LOWER RIBS. STATES THAT HE IS UNSURE IF IT IS CAUSING HIS COUGHING OR IF HIS COUGHING IS CAUSING THE PAIN. STATES THAT THIS PAIN IS NEW THIS AFTERNOON, WAS WORSE AFTER HE AMBULATED FROM THE CHAIR TO BED. TYLENOL GIVEN PER EMAR. CALLED DR. KEANE AND NOTIFIED HER OF HIS PAIN, SHE STATES SHE WILL COME UP TO SEE HIM SHORTLY.
--- NOTE | 2019-12-25 16:10 | NUR ---
DR. KEANE AT BEDSIDE. DISCUSSED PATIENT'S PAIN IN LOW CHEST / UPPER ABDOMEN THAT RADIATES AROUND HIS LOWER CHEST. ORDERS RECEIVED TO CHANGE DUONEB TO Q4H, FOR PROVENTIL Q4H, AND CEPACOL. SEE EMAR. STATES MAY USE FENTANYL TO KEEP PAIN UNDER CONTROL. NOT TESTING CARDIAC ENZYMES AT THIS TIME.
--- NOTE | 2019-12-25 18:24 | NUR ---
SHIFT SUMMARY: PATIENT A/OX3. DEVELOPED A HARSH FREQUENT PRODUCTIVE COUGH WHERE HE WAS ALMOST GAGGING. DUONEB STARTED WITH GOOD EFFECT TO DECREASE COUGH. REPORTED NEW PAIN IN LOW CHEST/UPPER ABDOMEN, MD AWARE, MEDICATED WITH TYLENOL, CEPACOL, AND FENTANYL WITH GOOD EFFECT. DENIES PAIN AT THIS TIME. UP TO CHAIR FOR SEVERAL HOURS THIS AM AND THIS AFTERNOON. TOLERATING MEALS. DISCUSSED HOSPICE WITH PALLIATIVE CARE. MED NO TELE STATUS. WILL CONTINUE TO MONITOR AND REPORT TO ONCOMING RN.
--- NOTE | 2019-12-26 06:27 | NUR ---
SUMMARY PT UP IN CHAIR PART OF THE NIGHT FOR COMFORT. HE STATES HIS COUGH ISNT BAD LAST NIGHT. HE REFUSED HIS VS AT 0400 BECAUSE HE WANTED TO SLEEP AND WAS COMFORTABLE. VSS, MEDICATED ONCE FOR PAIN PER EMAR. NO ACUTE CHANGES IN STATUS THROUGHOUT THE NIGHT. PT NOW SLEEPING, CALL LIGHT IN REACH, BED IN LOW POSITION.
[2019-12-26 08:01] LABS: BASOPHILS ABSOLUTE AUTO 0.01 K/mm3 (0.00-0.23); BASOPHILS PERCENT AUTO 1 % (0-2); EOSINOPHILS ABSOLUTE AUTO 0.05 K/mm3 (0.00-0.68); EOSINOPHILS PERCENT AUTO 3 % (0-6); Hemoglobin 6.9 g/dL (13.5-17.5); IMMATURE GRAN ABSOLUTE AUTO 0.02 K/mm3 (0.00-0.10); IMMATURE GRAN PERCENT AUTO 1 % (0-1); LYMPHOCYTES ABSOLUTE AUTO 0.52 K/mm3 (0.84-5.20); LYMPHOCYTES PERCENT AUTO 31 % (21-46); MONOCYTES ABSOLUTE AUTO 0.07 K/mm3 (0.16-1.47); MONOCYTES PERCENT AUTO 4 % (4-13); Mean Corpuscular HGB 32.4 pg (26.0-34.0); Mean Corpuscular HGB Conc 31.4 g/dL (31.5-36.5); Mean Corpuscular Volume 103 fL (80-100); NEUTROPHILS ABSOLUTE AUTO 0.99 K/mm3 (1.96-9.15); NEUTROPHILS PERCENT AUTO 60 % (41-73); NRBC ABSOLUTE 0.02 K/mm3 (0.00-0.02); NRBC Auto 1.2 /100 WBC (0.0-0.2); Platelet Count 68 K/mm3 (150-400); RDW Coefficient Variation 20.7 % (11.7-14.2); RDW Standard Deviation 78.3 fL (35.1-46.3); Red Blood Cell Count 2.13 M/mm3 (4.30-5.90); White Blood Cell Count 1.66 K/mm3 (4.00-11.30)
--- NOTE | 2019-12-26 08:40 | NUR ---
DISCUSSED POC WITH DR. KEANE. DISCUSSED LABS. STATES PLAN IS TO GET PATIENT SET UP ON HOSPICE. ORDERS RECEIVED TO CHANGE BACLOFEN TO Q12 PRN.
--- NOTE | 2019-12-26 16:45 | NUR ---
CALLED DR. BILLY. NOTIFIED HIM PATIENT STILL HAVING COUGHING FITS, STATES THAT THEY ARE BETTER THAN YESTERDAY. RESPIRATORY THERAPY DOES NOT THINK THAT BREATHING TREATMENTS WILL HELP WITH COUGH HE IS NOT WHEEZING. DR. BILLY ORDERED TESSALON PEARLS 100 MG PO Q4H PRN COUGH.
--- NOTE | 2019-12-26 19:41 | NUR ---
SHIFT SUMMARY: PATIENT A/OX3. MEDICATED FOR PAIN WITH TYLENOL AND BACLOFEN WITH GOOD EFFECT. ON ROOM AIR. HAS COUGHING FITS BUT THEY ARE NOT FREQUENT YESTERDAY. MARYA WAKEFIELD ORDERED. AMBULATED IN HALLS WITH PHYSICAL THERAPY AND WAS UP IN THE CHAIR FOR MOST OF THE DAY. THERE WAS A MEETING WITH HOSPICE, THE PATIENT, AND HIS DAUGHTER. PLAN IS FOR DC HOME WITH HOSPICE IN THE NEXT FEW DAYS.
--- NOTE | 2019-12-26 20:52 | NUR ---
TRANSFER NOTE ASSUMED CARE OF PT @ APPROX 193. PT MEDICAL NO TELE STATUS. A&O X4. VSS. SPO2 > 92% ON RA. PT W/ COUGH, PRODUCING THICK CLEAR SPUTUM. SPUTUM NOTED TO BE RED TINGED AFTER USE OF RED THROAT LOZENGE. PT REPORTS DISCOMFORT "ACROSS MY CHEST WHEN I COUGH, BUT IT GOES AWAY AFTER MY FIT IS OVER." PT REPORTS HAVING MULTIPLE COUGHING "FITS" TODAY. OTHERWISE, PT DENIES OTHER PAIN/DISCOMFORT. GONZALEZ CATH PATENT & DRAINING. PT REPORTS SELF CATHING @ HOME & REPORTS HE WOULD LIKE TO CONTINUE STRAIGHT CATHING WHEN HE DISCHARGES HOME RATHER THAN CONTINUE TO THE GONZALEZ CATH ON HOSPICE CARE. REPORT CALLED TO MEDICAL FLOOR RN ASSUMING CARE OF PT & PT TRANSFERRED TO MEDICAL FLOOR RM 326 @ APPROX 2049 IN WHEEL CHAIR, BY [facility], WITH BELONGINGS.
--- NOTE | 2019-12-27 06:14 | NUR ---
SHIFT SUMMARY PATIENT DID NOT GET MUCH SLEEP OVERNIGHT DUE TO HIS DIFFICULTY BREATHING. HE SAYS WHEN HE LAYS DOWN IN HIS BED THAT THE PRESSURE OF HIS STOMACH MAKES IT HARD TO BREATHE. RECLINER PLACED IN PATIENT'S ROOM TO HELP DECREASE HIS RESPIRATORY EFFORT AND HE WAS ABLE TO GET SOME SLEEP. PATIENT IS CURRENTLY CONFUSED, NOT REMEMBERING WHERE HE IS AND ASKING ABOUT THE NEED TO GO TO WORK. IV PATENT AND FLUSHED. BED IN LOWEST POSITION WITH WHEELS LOCKED AND ALARM ON. CALL LIGHT WITHIN REACH. REPORT GIVEN TO ONCOMING RN.
--- NOTE | 2019-12-27 17:47 | NUR ---
SHIFT SUMMARY. A&OX3, PT REPORTS INTERMITTENT CONFUSION THIS AM THAT RESOLVED, REOIENTATED EASILY. PT HAS BEEN CLEARED BY PHYSICAL THERAPY TO ABULATE IN ROOM INDEPENDTLY WITH FWW. GONZALEZ CATHETER REMOVED, PT STRAIGHT CATHED SELF ONCE SINCE, HE REPORTS STRAIGHT CATHING FOR THE PAST 25 YEARS. PT REPORTED PAIN THIS AM WITH COUGHING, TESSOLON PEARLS EASED COUGH, IV FENTANYL RESOLVED RIB PAIN. PT REPORTED SORE BACK THIS AFTERNOON, PAIN RESOLVED WITH APAP AND HEATING PAD. PT DENIES N/V, SOB, GOOD MEAL INTAKE. PLAN IS FOR PT TO D/C HOME WITH HOSPICE MONDAY. NO OTHER CHANGES OR CONCERNS.
--- NOTE | 2019-12-28 05:36 | NUR ---
SHIFT SUMMARY NO ACUTE CHANGES THIS SHIFT. PT REQUIRED STRAIGHT CATH X2 WITH ASSISTANCE DUE TO SWELLING. A&O X4. SBA-1 ASSIST FROM BED TO CHAIR AND BACK. PT STATES THAT HE IS WANTING TO EXPLORE THE MASS IN HIS LIVER. PT IS NOW LAYING IN BED WITH EYES CLOSED, EVEN AND UNLABORED RESPIRATIONS. BED IN LOWERED POSITION WITH BED ALARM ON. CALL LIGHT AND PERSONAL ITEMS WITHIN REACH. NO APPARENT NEEDS OR DISTRESS AT THIS TIME. WILL CONTINUE TO MONITOR UNTIL REPORT GIVEN TO DAY RN.
--- NOTE | 2019-12-28 18:27 | NUR ---
SHIFT SUMMARY- PT IS A/O, PLESANT AND COOPERATIVE. HE WORKED WITH PT THIS MORNING AND WALKED IN THE HALLWAY. HE IS RECIEVING PRN STRAIGHT CATH. HE NORMALLY DOES THIS AT HOME BUT IS HAVING DIFFUCULTY WITH THE SWELLING IN HIS PENIS AND SCROTUM. HE IS EATING AND DRINKING WELL. HE TOOK A SHOWER THIS MORNING. HE TOOK A TWO NAPS TODAY AND SLEPT WELL. HE HAS A HARSH COUGH, BUT REPORTS THAT IT IS DOING MUCH BETTER THAN IT WAS.
--- NOTE | 2019-12-29 07:32 | NUR ---
VEGETABLE GROWER SUMMARY A&OX4. OOB with FWW and gaitbelt with one assist to bedside commode or chair. Complaints at HS of back pain were treated with 25mcg of Fentanyl and tylenol per EMAR, as well as use of k pad. Pleasant and cooperative, patient allowed this RN to straight cath him twice during the shift for a total of 1400 ml of clear yellow urine. Patient very pleased that the edema on his scrotum and penis had dissipated significantly.
--- NOTE | 2019-12-29 17:49 | NUR ---
SHIFT SUMMARY- PT IS A/O PLESANT AND COOPERATIVE. HE IS EATING AND DRINKING WELL. HE IS HAVING BACK PAIN DISCUSSED THIS WITH THE DR. HE IS RECIEVING PRN PAIN MEDICATIONS. HE IS REQUIRING STRAIGHT CATH NEEDED TO EMPTY HIS BLADDER.
--- NOTE | 2019-12-30 07:56 | NUR ---
CLINICAL DATA MANAGER SUMMARY Patient very pleased with new RX for Roxynol. States his back pain hasn't been really tolerable for years. Gene was able to sleep between assessments and medications. Patient declined performing his own st cath twice last night as he said he couldn't do it laying in bed, and each time he was sleeping when it was time. Right lower abdomen still bleeding from a lovenox shot given several days ago. bandaid placed to avoid repeated soiling of bed and bedclothes.
--- NOTE | 2019-12-30 15:18 | NUR ---
SHIFT SUMMARY PT IS A/O X 4 AND C/O BACK PAIN X 1. TYLENOL WAS GIVEN ORDERED AND EFFECTIVE. PT HAS BEEN WORKING WITH CARE MANAGEMENT ON HIS DC PLAN AND THE FACILITY WHERE HE IS SCHEDULED TO GO TOMORROW CAME AND MET WITH HIM TODAY. THE PT IS A STAND BY ASSIST FOR TRANSFERS. PT CONTINUES TO NEED I/O CATH THIS IS HIS BASELINE. THE PT IS ABLE TO MAKE HIS NEEDS KNOWN AND CALLS FOR HELP WHEN NEEDED. HE HAS HIS CALL LIGHT IN REACH.
--- NOTE | 2019-12-30 22:42 | NUR ---
2018 PT SITTING IN BEDSIDE CHAIR. REPORTS MUSCLES ARE SORE AND STIFF, GAVE TYLENOL, WILL EVAL FOR EFFECT. REPORTS OCC SOB WITH EXERTION, ON RA AT 97%. HAS A DRY COUGH, GAVE CEPACOL LOZENGES AND TESSALON PERLES, WILL EVAL FOR EFFECT. PT HAS URINE RETENTION, ASSISTED PT TO STRAIGHT CATH SELF, URINE CLEAR AND YELLOW, GOT 175 OUT. SCD'S ON. NO OTHER APPARENT SIGNS OF DISTRESS. CALL LIGHT IS IN REACH.
--- NOTE | 2019-12-30 22:44 | NUR ---
2200 PT LYING IN BED, EYES CLOSED, APPEARS TO BE RESTING. BREATHING IS EVEN, UNLABORED. NO APPARENT SIGNS OF DISTRESS. CALL LIGHT IS IN REACH.
--- NOTE | 2019-12-31 01:52 | NUR ---
0000 PT LYING IN BED, EYES CLOSED, APPEARS TO BE RESTING. BREATHING IS EVEN, UNLABORED. NO APPARENT SIGNS OF DISTRESS. CALL LIGHT IS IN REACH.
--- NOTE | 2019-12-31 01:52 | NUR ---
PT LYING IN BED, EYES CLOSED, APPEARS TO BE RESTING. WAKES EASILY TO VERBAL STIMULI. NO APPARENT SIGNS OF DISTRESS. CALL LIGHT IS IN REACH.
--- NOTE | 2019-12-31 04:26 | NUR ---
PT LYING IN BED, EYES CLOSED, APPEARS TO BE RESTING. BREATHING IS EVEN, UNLABORED. NO APPARENT SIGNS OF DISTRESS. CALL LIGHT IS IN REACH.
--- NOTE | 2019-12-31 04:26 | NUR ---
PT IS AAO X 4, ON RA AT 97%, REPORTS OCC SOB WITH EXERTION. REPORTS STIFF AND SORE MUSCLES, GOT TYLENOL AT HS. PT DOES STRAIGHT CATH FOR HIMSELF WITH SOME ASSISTANCE, DID AT HS WITH 175 OUT. SCD'S NOT ON, PT WORE FOR A LITTLE WHILE AND THEN REQUESTED OFF. EDEMA IN LE'S.
--- NOTE | 2019-12-31 05:57 | NUR ---
PT LYING IN BED, EYES CLOSED, APPEARS TO BE RESTING. BREATHING IS EVEN, UNLABORED. NO APPARENT SIGNS OF DISTRESS. CALL LIGHT IS IN REACH. NO OTHER CHANGES THIS SHIFT.
[2019-12-31] MEDS ORDERED: ALBU2.5V5 INH (09:17)
[2019-12-31] MEDS ORDERED: ANTOXYBENA PO (09:18)
[2019-12-31] MEDS ORDERED: BENZ100A PO (09:18)
[2019-12-31] MEDS ORDERED: CLIN150 PO (09:19)
[2019-12-31] MEDS ORDERED: IPRAT-ALBUT 0.5-3 ML INH (09:20)
[2019-12-31] MEDS ORDERED: LEVOFLOXACIN250 M1 PO (09:21)
--- NOTE | 2019-12-31 18:52 | NUR ---
PATIENT DISCHARGED TO HOME VIA [facility]IA . NEW O2 TANK ACCOMPANIED PATIENT. HAS ALL BELONGINGS. VERBALIZED UNDERSTANDING OF D/C INSTRUCTIONS. IV SALINE LOCK REMOVED WITHOUT INCIDENT. LEFT UNIT AT 1000.
== END 2019-12-31 09:53 | disposition home or self-care (01) | DRG 698 ==
LOC: ER 15:37 → PCU 19:06 → MEDS 19:06 → PCU 20:56 → MEDS 12-26 20:54
PROVIDERS: Emergency Medicine; Family Medicine; ADMIT Internal Medicine
DX: T83.518A Infection and inflammatory reaction due to other urinary catheter, initial encounter (principal); A41.59 Other Gram-negative sepsis; I21.A1 Myocardial infarction type 2; R65.20 Severe sepsis without septic shock; C34.32 Malignant neoplasm of lower lobe, left bronchus or lung; D61.818 Other pancytopenia; R18.8 Other ascites; N30.90 Cystitis, unspecified without hematuria; Z66 Do not resuscitate; Z20.828 Contact with and (suspected) exposure to other viral communicable diseases; I12.9 Hypertensive chronic kidney disease with stage 1 through stage 4 chronic kidney disease, or unspecified chronic kidney disease; N18.30 Chronic kidney disease, stage 3 unspecified; Z95.2 Presence of prosthetic heart valve; E80.6 Other disorders of bilirubin metabolism; D64.9 Anemia, unspecified; K74.60 Unspecified cirrhosis of liver; Z88.2 Allergy status to sulfonamides; I48.91 Unspecified atrial fibrillation; E03.9 Hypothyroidism, unspecified; E86.0 Dehydration; K80.20 Calculus of gallbladder without cholecystitis without obstruction
CPT/HCPCS: 0202U; 36415; 51701; 51703; 71045; 74176; 78226; 80053; 80069; 81001; 82550; 83605; 83690; 83735; 83880; 84145; 84484; 85025; 86850; 86900; 86901; 87040; 87077; 87086; 87186; 93005; 93010; 94640; 94760; 96365-59; 96366-59; 96367-59; 97110; 97112; 97116; 97162; 97530; 99285-25; A9270; A9537; J0295; J0696; J1644; J2185; J2704; J3010; J3370; J7030; J7050; Q2038

== ENCOUNTER 2020-01-05 02:34 | Observation (INO) | payer OTHER ==
[~2020-01-05] VITALS: Ht 172.7 cm; Wt 88.5 kg
[~2020-01-05 02:34] MED LIST changes: +ALBU2.5V5 INH; +AMMONIUM LAC TOP; +AMOCLA500 PO; +ANTOXYBENA PO; +BACL10 PO; +BENZ100A PO; +CLIN150 PO; +Cranberry300 MG PO; +DOXA4 PO; +FURO40 PO; +IPRAT-ALBUT 0.5-3 ML INH; +LEVOFLOXACIN250 M1 PO; +LEVSOD100 PO; +MIRALAX17 GM PO; +MULTI-VITAMIN1 EAC2 PO; +Mirtazapine7.5 MG PO; +NARCAN4 M1; +QUET25 PO; +Vitamin D2000 UNIT PO; +[UNRECOGNIZED DRUG - OTHER] TOP
[2020-01-05 03:14] LABS: BASOPHILS ABSOLUTE AUTO 0.01 K/mm3 (0.00-0.23); BASOPHILS PERCENT AUTO 0 % (0-2); EOSINOPHILS ABSOLUTE AUTO 0.03 K/mm3 (0.00-0.68); EOSINOPHILS PERCENT AUTO 1 % (0-6); Hematocrit 22.5 % (37.0-53.0); Hemoglobin 7.3 g/dL (13.5-17.5); Mean Corpuscular HGB Conc 32.4 g/dL (31.5-36.5); Mean Corpuscular Volume 102 fL (80-100); NRBC ABSOLUTE 0.04 K/mm3 (0.00-0.02); NRBC Auto 1.2 /100 WBC (0.0-0.2); Platelet Count 86 K/mm3 (150-400); RDW Coefficient Variation 21.4 % (11.7-14.2); RDW Standard Deviation 78.4 fL (35.1-46.3); Red Blood Cell Count 2.21 M/mm3 (4.30-5.90); White Blood Cell Count 3.23 K/mm3 (4.00-11.30)
[2020-01-05 03:16] LABS: IMMATURE GRAN ABSOLUTE AUTO 0.08 K/mm3 (0.00-0.10); IMMATURE GRAN PERCENT AUTO 3 % (0-1); LYMPHOCYTES ABSOLUTE AUTO 0.37 K/mm3 (0.84-5.20); LYMPHOCYTES PERCENT AUTO 12 % (21-46); MONOCYTES ABSOLUTE AUTO 0.06 K/mm3 (0.16-1.47); MONOCYTES PERCENT AUTO 2 % (4-13); Mean Platelet Volume 13.4 fL (9.1-12.4); NEUTROPHILS ABSOLUTE AUTO 2.68 K/mm3 (1.96-9.15); NEUTROPHILS PERCENT AUTO 83 % (41-73)
[2020-01-05 03:23] LABS: Source, Urine Voided
[2020-01-05 03:25] LABS: Appearance, Urine Clear (Clear); Bilirubin, Urine Neg (Neg); Blood, Urine 1+ (Neg); Color, Urine Amber (P-Yellow); Glucose Qualitative, Urine Neg (Neg); Ketones, Urine Neg (Neg); Leukocyte Esterase, Urine 1+ (Neg); Nitrite, Urine Neg (Neg); Protein, Urine 1+ (Neg); Specific Gravity, Urine 1.015 (1.003-1.022); Urobilinogen, Urine 1+ (Normal)
[2020-01-05 03:30] LABS: Albumin, Blood 2.8 g/dL (3.4-5.0); Albumin/Globulin Ratio 0.8 (0.8-1.8); Bilirubin, Total 1.4 mg/dL (0.1-1.0); Bun/Creatinine Ratio 19.2 (12.0-20.0); Calcium, Blood 8.2 mg/dL (8.5-10.1); Creatinine, Blood 1.93 mg/dL (0.60-1.20); Globulin, Blood 3.6 g/dL (2.2-4.0); Potassium, Blood 4.4 mmol/L (3.5-5.5); Total Protein, Blood 6.4 g/dL (6.4-8.2)
[2020-01-05 03:33] LABS: White Blood Cells, Urine 0-2 /hpf (0-5)
[2020-01-05 03:34] LABS: Amorphous Light (0-Heavy); Bacteria Mod /hpf; Squamous Epithelial Cells Not Seen /hpf (Few)
--- NOTE | 2020-01-05 13:15 | NUR ---
Initial palliative care consult: Sarath is an 89 year old with a history of lung mass, anemia, CKD, NSTEMI, HTN, a-fib, hypothyroidism, GI bleed s/p TAVR procedure. He was discharged home to [facility] on 12/31/19 with [facility]. He was brought into the ER last night with new severe abd pain and N/V. Workup from the ER shows that he has large amount of stool and an ischemic bowel. Sarath declined surgery for his ischemic bowel and his dtr supports his decision. He was admitted to room 301 on comfort care. Marlene reports Sarath is 100% sevice connected and 3 hours/day of caregiver hours with [facility] in home care started for him two days ago. He will likely need additional caregiver support vs. placement on hospice if he requires more care. It is possible given his sudden decline that he may continue to quickly decline and pass away here in the hospital. Will plan to have CM talk with Marlene on Monday. Goal for today is to get Sarath comfortable. He has rec'd both IV and SL meds to get him to where he is currently sleeping. Marlene reports he self caths and has done so for years. She states she doesn't think he has self cathed since last night at 7 pm. Shaniqua, his bedside RN, is aware and is planning on placing a remy as pt is not able to self cath at this time. Shaniqua is working with pharmacy to get a fentanyl patch for Sarath. Marlene has no further questions at this time. She is planning to spend the night with Sarath. She expresses sadness over his quick decline as she tells this science writer that his birthday was Monday (2 days ago) and they went out to dinner and he was doing well. She spoke with him last evening before he went to bed and he also told her that he felt fine. Allowed her to express feelings. Emotional support given. Updated Shaniqua on conversation with Marlene. Shaniqua states she will place remy. Some of his discomfort may be from a full bladder. PC to continue to follow.
--- NOTE | 2020-01-05 20:03 | NUR ---
SHIFT SUMMARY: PATIENT ADMITTED FOR COMFORT CARE. SHOWED S/S OF SEVERE PAIN ON ARRIVAL; PAIN AND ANXIETY MEDICATIONS GIVEN PER EMAR. PT NORMALLY SELF CATHS D/T NEUROGENIC BLADDER; PER HIS DAUGHTER HE AHD NOT CATHETERIZED HIMSELF SINCE LAST NIGHT. RECEIVED ORDER FOR GONZALEZ CATHETER. ONCE PLACED, PT CALMED DOWN AND NO LONGER EXHIBITED S/S OF PAIN. PLACED FENTANYL 25 MCG PATCH ON PT'S L UPPER ARM. Julio César CEDENO FROM PALLIATIVE CARE CAME BY AND SPOKE WITH PATIENT'S FAMILY. PT APPEARS COMFORTABLE AT THIS TIME.
--- NOTE | 2020-01-05 20:39 | NUR ---
PATIENT IS CURRENTLY RESTING COMFORTABLY IN BED. NO SIGNS OF PAIN OR DISCOMFORT. RESPIRATIONS ARE EVEN. RECLINER PROVIDED TO DAUGHTER WHO IS ROOMING IN AT BEDSIDE.
--- NOTE | 2020-01-05 22:49 | NUR ---
PATIENT WOKE UP IN PAIN AND SEEMED AGGITATED. PATIENT MEDICATED WITH ROXANOL FOR PAIN. PATIENT REPOSITIONED, IV FLUSHED, AND CATH CARE COMPLETED. PATIENT STILL AGGITATED DUE TO REPOSITIONING. WILL REASSESS PAIN MEDICATION TAKES EFFECT.
--- NOTE | 2020-01-05 22:57 | NUR ---
PATIENT HAS FALLEN ASLEEP AFTER ADMINISTRATION OF PAIN MEDICATION AND IS BREATHING EASIER AGAIN. AGGITATION HAS RESOLVED.
--- NOTE | 2020-01-06 00:40 | NUR ---
PATIENT WOKE UP AND IS MUMBLING AND MOANING. PATIENT MEDICATED PER EMAR FOR PAIN IN PREPARATION FOR REPOSITIONING.
--- NOTE | 2020-01-06 07:23 | NUR ---
SHIFT SUMMARY PATIENT IS CURRENTLY RESTING COMFORTABLY WITH HIS DAUGHTER AT BEDSIDE. HE REQUIRED BEING MEDICATED WITH PAIN MEDICATION PER EMAR ABOUT EVERY TWO HOURS. REQUIRED ATIVAN ONCE AFTER PAIN MEDS FAILED TO CALM HIS AGGITATION. IV PATENT AND FLUSHED. BED IN LOWEST POSITION WITH WHEELS LOCKED AND ALARM ON. CALL LIGHT WITHIN REACH. REPORT GIVEN TO ONCOMING RN.
--- NOTE | 2020-01-06 08:01 | NUR ---
Spoke with Bedside BELINDA Kay and she reports Pt has . Arrived to Pt's room and offered condolences to family. Offered therapeutic listening and gentle voice. Family expresses appreciation of visit. Family appears to be grieving appropriately. Palliative Care will remain available.
--- NOTE | 2020-01-06 09:12 | NUR ---
AT 0734 NOTED NO RESPRIATIONS OR PULSE. DAUGHTER AT BEDSIDE SLEEPING, WOKE HER UP TO NOTIFY HER.
== END 2020-01-06 07:35 ==
LOC: ER 02:34 → MEDS 02:35
PROVIDERS: Emergency Medicine; ADMIT Family Medicine
DX: K55.019 Acute (reversible) ischemia of small intestine, extent unspecified (principal); K63.89 Other specified diseases of intestine; R91.8 Other nonspecific abnormal finding of lung field; R16.0 Hepatomegaly, not elsewhere classified; D61.818 Other pancytopenia; A41.9 Sepsis, unspecified organism; I12.9 Hypertensive chronic kidney disease with stage 1 through stage 4 chronic kidney disease, or unspecified chronic kidney disease; N18.30 Chronic kidney disease, stage 3 unspecified; N39.0 Urinary tract infection, site not specified; E03.9 Hypothyroidism, unspecified; Z88.2 Allergy status to sulfonamides; Z88.8 Allergy status to other drugs, medicaments and biological substances; Z66 Do not resuscitate; Z87.891 Personal history of nicotine dependence; Z79.899 Other long term (current) drug therapy
CPT/HCPCS: 36415; 74176; 80053; 81001; 83690; 85025; 87086; 93005; 93010; 96365; 96367; 96375; 96376; 99285-25; G0378; J1170; J2060; J2270; J2405; J2543